=== PATIENT | male | born 1955 | race Caucasian/White ===

== ENCOUNTER 2016-03-15 14:16 | Inpatient (IN) | payer MEDICARE, MEDICAID ==
[~2016-03-15] VITALS: Ht 170.2 cm; Wt 90.8 kg
[~2016-03-15 14:16] MED LIST: ASPI325T PO; BACL10TA PO; CEFU1TAB43 PO; DEXT15TA PO; DILA100C PO; FLUO-1 PO; GENT EACH EYE; LEVE500 PO; TAMS0.4C67 PO; TRAN200T PO
[2016-03-15 14:28] VITALS: BP 109/68; PULSE 58; RESP 18; TEMP 97.8; O2SAT 99
[2016-03-15] MEDS ORDERED: DILA30CA PO (14:33)
[2016-03-15] MEDS ORDERED: LABE100T2 PO (14:33)
[2016-03-15] MEDS ORDERED: TAMS5CAP PO ×2 (14:33→19:19)
[2016-03-15] MEDS ORDERED: BACL10TA PO ×2 (14:33→19:17)
[2016-03-15] MEDS ORDERED: KETOROLAC TROMETHAMINE 30 MG/ML (IVP) VIAL IV PUSH ONE ×2 (15:15→18:00)
[2016-03-15] MEDS ORDERED: LORazepam 2 MG/ML VIAL IV PUSH ONE (15:15)
--- NOTE | 2016-03-15 15:44 | PD ---
HPI Chief Complaint: Anxiety Time Seen by Provider: 15:38 Travel History International Travel<30 days: No Contact w/Intl Traveler<30days: No Traveled to known affect area: No History of Present Illness HPI 60-year-old male that presents to the ED for evaluation of left lower leg pain as well as buttocks pain and anxiety. Per patient is a chronic history depression and anxiety. Patient for lice on the left side. Per patient he feels like he has muscle spasms on his left leg because severe pain. Per patient he currently takes ibuprofen and Tylenol for pain and he states that he does have stronger pain medications but he doesn't know his gives to him. Per patient for the past week to 5 days he's been having some buttocks pain as well as some pain on the left leg and the right hip to come and go. Per patient the most severe as on the body aches. He does tell me that his been more sedentary than usual and he does have a colostomy back so he has no bowel movement issues but he does tell me he has a history of abscesses in the perirectal region. He actually had to have surgery on one of them. He denies any discharge or any mass or deformity in the area but he cannot really tender when his last and his checked his buttox. He denies any chest pain or shortness of breath. Per patient's his anxiety has been worsening for the past 3 weeks. Per patient he only takes Prozac for depression but he states that he' s been sitting on a recliner and per patient is driving him "crazy ". Per patient has no suicidal or homicidal ideation but he feels very anxious and feels like he needs something for it. Per patient his pain is currently 7 out of 10. PFSH Past Medical History Hx Anticoagulant Therapy: Yes Arthritis: Yes Asthma: No Autoimmune Disease: No Blood Disorders: No Anxiety: Yes Depression: Yes Heart Rhythm Problems: No Cancer: No Cardiovascular Problems: Yes High Cholesterol: No Chemotherapy: No Chest Pain: No Congestive Heart Failure: No COPD: No Cerebrovascular Accident: Yes Diabetes: No Diminished Hearing: No Endocrine: No Gastrointestinal Disorders: Yes (ULCERATIVE COLITIS) GERD: No Genitourinary: Yes (HX OF URINARY RETENTION REQUIRING INTERMITTANT CATH, NOT CURRENT ) Headaches: No Hepatitis: No Hiatal Hernia: No Hypertension: Yes Immune Disorder: No Implanted Vascular Access Dvce: Yes Kidney Stones: No Musculoskeletal: Yes (HX OF L HIP FRACTURE 07/2013, JOLLY PARESIS L SIDE, USES LEG BRACE L , WALKER) Neurologic: Yes (FEBRUARY 2012 HEMORRHAGIC STROKE) Psychiatric: Yes (SLIGHTLY CLAUSTROPHOBIC) Reproductive: No Respiratory: Yes (HX OF TRACHEOTOMY AFTER STROKE, DIFFICULTY EXTUBATING) Migraines: No Radiation Therapy: No Renal Failure: No Seizures: No Sickle Cell Disease: No Sleep Apnea: No Thyroid Disease: No Ulcer: No Past Surgical History Abdominal Surgery: Yes (ILLEOSTOMY 11/2012) AICD: No Arteriovenous Shunt: No Body Medical Devices: ISELA AND PINS IN LEFT LEG/HIP Cardiac Surgery: No Ear Surgery: Yes (SINUS SURGERY) Endocrine Surgery: No Eye Surgery: No Genitourinary Surgery: No Gynecologic Surgery: No Insulin Pump: No Joint Replacement: No Neurologic Surgery: Yes (CRANIOTOMY 2012) Oral Surgery: Yes Pacemaker: No Thoracic Surgery: Yes (ILEOSTOMY, POST RONY RECTAL ABCESS REMOVAL 2012, 2013) Tonsillectomy: Yes Other Surgery: Yes (relief of blood clot in brain(feb 2012)) Social History Alcohol Use: Yes (Saturday he drank alcohol with friends) Tobacco Use: No Substance Use: Yes (thc) Allergies-Medications (Allergen,Severity, Reaction): Coded Allergies: No Known Allergies (Unverified , 03/15/16) Reported Meds & Prescriptions Reported Meds & Active Scripts Active Reported Labetalol (Labetalol HCl) 100 Mg Tab 100 Mg PO BID Dilantin (Phenytoin Extended) 30 Mg Cap 30 Mg PO TID Baclofen 10 Mg Tab 10 Mg PO TID PRN Flomax (Tamsulosin HCl) 0.4 Mg Cap 0.4 Mg PO HS Review of Systems Except as stated in HPI: all other systems reviewed are Neg Physical Exam Narrative GENERAL: SKIN: Warm and dry. Examination of the sacrum did reveal what appears to be irritation of the skin with possible stage I decubitus ulcer but also what appears to be a perirectal abscess already draining greenish liquid. Pain is reproducible with touch in this area. Patient does have an area of swelling and erythema noted on the right scrotum appears to be somewhat indurated. No obvious fluid noted. HEAD: Atraumatic. Normocephalic. EYES: Pupils equal and round. No scleral icterus. No injection or drainage. ENT: No nasal bleeding or discharge. Mucous membranes pink and moist. Tongue is midline. No uvula deviation. NECK: Trachea midline. No JVD. CARDIOVASCULAR: Regular rate and rhythm. No murmurs, S3, S4. RESPIRATORY: No accessory muscle use. Clear to auscultation. Breath sounds equal bilaterally. GASTROINTESTINAL: Abdomen soft, non-tender, nondistended, patient has colostomy bag on the right lower quadrant. Hepatic and splenic margins not palpable. MUSCULOSKELETAL: Extremities without clubbing, cyanosis, or edema. No obvious deformities. Patient has no movements of the left upper and left lower extremity secondary to chronic paralysis. Patient appears to have full passive movement on the right hip but has some pain on the hip itself. No knee pain or ankle pain noted. 2+ pulses bilaterally. Some pain on the medial aspect of the back but minimal. Full range of motion of right upper extremity with no pain. NEUROLOGICAL: Awake and alert. No obvious cranial nerve deficits. Motor grossly within normal limits. Five out of 5 muscle strength in the arms and legs. Normal speech. PSYCHIATRIC: Appropriate mood and affect; insight and judgment normal. Data Data Last Documented VS Vital Signs Date Time Temp Pulse Resp B/P Pulse Ox O2 Delivery O2 Flow Rate FiO2 03/15/16 14:28 97.8 58 18 109/68 99 Orders Electrocardiogram (03/15/16 15:13) Complete Blood Count With Diff (03/15/16 15:13) Basic Metabolic Panel (Bmp) (03/15/16 15:13) Prothrombin Time / Inr (Pt) (03/15/16 15:13) Act Partial Throm Time (Ptt) (03/15/16 15:13) Blood Culture (03/15/16 15:13) Urinalysis - C+S If Indicated (03/15/16 15:13) Magnesium (Mg) (03/15/16 15:13) Wound Culture And Gram Stain (03/15/16 15:13) Ct Abd/Pel W Iv Contrast(Rout) (03/15/16 15:13) Iv Access Insert/Monitor (03/15/16 15:13) Lorazepam Inj (Ativan Inj) (03/15/16 15:15) Ketorolac Inj (Toradol Inj) (03/15/16 15:15) Lactic Acid (03/15/16 15:44) Us Leg Venous Doppler (03/15/16 ) Iohexol 350 Inj (Omnipaque 350 Inj) (03/15/16 17:09) Piperacil-Tazo 3.375 Gm Premix (Zosyn 3. (03/15/16 18:00) Vancomycin Inj (Vancomycin Inj) (03/15/16 18:00) Ketorolac Inj (Toradol Inj) (03/15/16 18:00) Admit Order (Ed Use Only) (03/15/16 18:08) Consult Urology (03/15/16 ) Labs Laboratory Tests Test 03/15/16 03/15/16 03/15/16 15:23 16:00 16:45 White Blood Count 17.0 TH/MM3 Red Blood Count 4.36 MIL/MM3 Hemoglobin 13.0 GM/DL Hematocrit 37.1 % Mean Corpuscular Volume 85.1 FL Mean Corpuscular Hemoglobin 29.7 PG Mean Corpuscular Hemoglobin 34.9 % Concent Red Cell Distribution Width 15.6 % Platelet Count 598 TH/MM3 Mean Platelet Volume 6.7 FL Neutrophils (%) (Auto) 83.0 % Lymphocytes (%) (Auto) 4.0 % Monocytes (%) (Auto) 7.9 % Eosinophils (%) (Auto) 3.7 % Basophils (%) (Auto) 1.4 % Neutrophils # (Auto) 14.1 TH/MM3 Lymphocytes # (Auto) 0.7 TH/MM3 Monocytes # (Auto) 1.3 TH/MM3 Eosinophils # (Auto) 0.6 TH/MM3 Basophils # (Auto) 0.2 TH/MM3 CBC Comment DIFF FINAL Differential Comment Prothrombin Time 11.8 SEC Prothromb Time International 1.1 RATIO Ratio Activated Partial 30.9 SEC Thromboplast Time Sodium Level 135 MEQ/L Potassium Level 4.1 MEQ/L Chloride Level 104 MEQ/L Carbon Dioxide Level 23.4 MEQ/L Anion Gap 8 MEQ/L Blood Urea Nitrogen 5 MG/DL Creatinine 0.99 MG/DL Estimat Glomerular Filtration 78 ML/MIN Rate Random Glucose 95 MG/DL Calcium Level 9.1 MG/DL Magnesium Level 2.3 MG/DL Lactic Acid Level 1.0 mmol/L Urine Color YELLOW Urine Turbidity CLEAR Urine pH 5.5 Urine Specific [place] 1.006 Urine Protein NEG mg/dL Urine Glucose (UA) NEG mg/dL Urine Ketones NEG mg/dL Urine Occult Blood NEG Urine Nitrite NEG Urine Bilirubin NEG Urine Urobilinogen LESS THAN 2.0 MG/DL Urine Leukocyte Esterase NEG Urine RBC LESS THAN 1 /hpf Urine WBC 1 /hpf Microscopic Urinalysis Comment CULT NOT INDICATED MDM Medical Decision Making Medical Screen Exam Complete: Yes Emergency Medical Condition: Yes Medical Record Reviewed: Yes Interpretation(s) EKG shows sinus rhythm with no sign of acute ischemia or arrhythmia read by me and attending. Differential Diagnosis Abscess versus perirectal abscess versus DVT versus sepsis versus acute on chronic pain versus anxiety versus depression versus decubitus ulcer Narrative Course 60-year-old male that presents to the ED for evaluation of multiple complaints. Patient was properly examined and was found to have what appears to be a draining around the perirectal abscess. Does not appear to involve the anus itself. I recommend imaging to rule out any sign of deeper injury or infection as patient does appear to have changes on the skin that could be operations support representative of an early decubitus ulcer as patient has been more sedentary recently. Patient also complains of severe anxiety. At this time I do recommend labs and imaging for further evaluation. Patient was started on IV fluids as well as IV anxiolytics. Patient was given Tylenol for pain. Culture of the purulence was taken. I do not see any need for incision and drainage at this time as is already draining greenish fluid. Patient agrees first to proceed with plan. Labs and imaging showed what appears to be a scrotal abscess with elevated white blood cell count. My attending evaluated the patient with me and agrees with plan. He recommends admission. There is no sign of rectal abscess. Patient was started on vancomycin and Zosyn. He agrees for admission plan. Case was discussed with Dr. iknney in school agrees to see patient in consultation well patient is admitted. Case was discussed with Dr. Lewis agrees to admission. Diagnosis Primary Impression: Scrotal abscess Additional Impressions: Cellulitis Qualified Code: L03.818 - Cellulitis of other specified site Leukocytosis Qualified Code: D72.829 - Leukocytosis, unspecified type Anxiety Admitting Information Admitting Physician Requests: Admit Ki Butt Mar 15, 2016 15:44
[2016-03-15 15:58] LABS: AUTOMATED NEUTROPHIL # 14.1 TH/MM3 (1.8-7.7); BASOPHIL # 0.2 TH/MM3 (0-0.2); BASOPHIL % 1.4 % (0.0-2.0); EOSINOPHIL # 0.6 TH/MM3 (0-0.4); EOSINOPHIL % 3.7 % (0.0-4.0); HEMATOCRIT 37.1 % (39.0-51.0); HEMO FLAGS DIFF FINAL; LYMPHOCYTE # 0.7 TH/MM3 (1.0-4.8); MEAN CELL VOLUME 85.1 FL (80.0-100.0); MEAN CORPUSCULAR HEMOGLOBIN 29.7 PG (27.0-34.0); MEAN CORPUSCULAR HGB CONC 34.9 % (32.0-36.0); MONO % 7.9 % (0.0-8.0); PLATELET COUNT 598 TH/MM3 (150-450); RED BLOOD COUNT 4.36 MIL/MM3 (4.50-5.90); RED CELL DISTRIBUTION WIDTH 15.6 % (11.6-17.2)
[2016-03-15 16:08] LABS: APTT (PATIENT) 30.9 SEC (24.3-30.1); INTERNATIONAL NORMALIZED RATIO 1.1 RATIO; PROTHROMBIN TIME - PATIENT 11.8 SEC (9.8-11.6)
[2016-03-15 16:25] LABS: BICARBONATE 23.4 MEQ/L (21.0-32.0); MAGNESIUM 2.3 MG/DL (1.5-2.5); POTASSIUM 4.1 MEQ/L (3.5-5.1)
[2016-03-15 17:03] LABS: BLOOD, URINE NEG (NEG); GLUCOSE,URINE NEG (NEG); KETONE, URINE NEG (NEG); NITRITE,URINE NEG (NEG); PH, URINE 5.5 (5.0-8.5); URINE COLOR YELLOW (YELLW/STRAW)
[2016-03-15 17:07] LABS: COMMENT (UR) CULT NOT INDICATED; CULTURE IF INDICATED CULT NOT INDICATED
[2016-03-15] MEDS ORDERED: IOHEXOL 350 MG/ML 10 ML VIAL (for RAD DIAG) IV ONE (17:09)
--- NOTE | 2016-03-15 17:32 | RADRPT ---
EXAM DATE/TIME: 03/15/2016 16:58 [facility] COMPARISON: CT ABDOMEN & PELVIS W CONTRAST, December 10, 2012, 16:46. INDICATIONS : Evaluate for abscess,Left groan pain IV CONTRAST: 100 cc Omnipaque 350 (iohexol) IV ORAL CONTRAST: No oral contrast ingested. RADIATION DOSE: 12.68 CTDIvol (mGy) MEDICAL HISTORY : Hypertension. colitis,IBS SURGICAL HISTORY : Ilieostomy,hip fracture ENCOUNTER: Initial ACUITY: 2 weeks PAIN SCALE: 8/10 LOCATION: Left pelvis TECHNIQUE: Volumetric scanning of the abdomen and pelvis was performed. Using automated exposure control and ad justment of the mA and/or kV according to patient size, radiation dose was kept as low as reasonably achievable to obtain optimal diagnostic quality images. FINDINGS: LOWER LUNGS: There is airspace consolidation and a small right-sided pleural effusion. The left lung base is clear . LIVER: Homogeneous density without lesion. There is no dilation of the biliary tree. No calcified gallston es. SPLEEN: Normal size without lesion. PANCREAS: Within normal limits. KIDNEYS: Left renal cyst. No evidence of hydronephrosis. ADRENAL GLANDS: Within normal limits. VASCULAR: There is no aortic aneurysm. BOWEL/MESENTERY: The stomach, small bowel, and colon demonstrate no acute abnormality. There is no free intraperitone al air or fluid. ABDOMINAL WALL: Right-sided ileostomy. RETROPERITONEUM: There is no lymphadenopathy. BLADDER: No wall thickening or mass. REPRODUCTIVE: There is a abnormal rim-enhancing fluid collection identified within the midline scrotum and extendin g into the right penile shaft. The scrotal fluid collection measures 4.9 cm anterior posterior by 2.3 cm transversely. INGUINAL: There is no lymphadenopathy or hernia. MUSCULOSKELETAL: Within normal limits for patient age. CONCLUSION: Abnormal fluid collection identified within the midline scrotum concerning for abscess which is exten ding into the right penile shaft. Yenny Abraham MD on March 15, 2016 at 17:27 Board Certified Radiologist. This report was verified electronically.
--- NOTE | 2016-03-15 17:47 | RADRPT ---
EXAM DATE/TIME: 03/15/2016 17:27 [facility] COMPARISON: US LEG LEFT VENOUS DOPPLER, August 11, 2013, 16:19. INDICATIONS : Left leg pain. MEDICAL HISTORY : Hypertension. Ulcerative colitis. Hemorrhagic stroke. CVA. Hemiplegia. Anticoauglant therapy. SURGICAL HISTORY : Tonsillectomy. Craniotomy. Sinus surgery. Tracheotomy. Ileostomy. Perirectal abscess removal. Left hip surgery. Blood transfusions. Brain surgery for blood clot relief. ENCOUNTER: Subsequent ACUITY: 3 weeks PAIN SCORE: 8/10 LOCATION: Left leg. TECHNIQUE: Venous ultrasound of the leg was performed from the inguinal ligament to the proximal calf. Real-michael e, color Doppler and spectral tracing, compression and augmentation techniques were used. FINDINGS: There is normal compressibility of the deep venous system from the inguinal region to the proximal ca lf. No echogenic clot is seen in the lumen of the common femoral, femoral, popliteal, and posterior tibial veins. There is a normal response of the venous system to proximal and distal augmentation an d respiration. CONCLUSION: Normal examination. Yenny Abraham MD on March 15, 2016 at 17:45 Board Certified Radiologist. This report was verified electronically.
[2016-03-15] MEDS ORDERED: VANCOMYCIN INJ 1,000 MG in SODIUM CHLOR 0.9% 250 ML INJ 250 ML IV ONE (18:00)
[2016-03-15] MEDS ORDERED: PIPERACIL-TAZO 3.375 GM PREMIX 50 ML IV ONE (18:00)
[2016-03-15] MEDS ORDERED: ENOXAPARIN SODIUM 40 MG/0.4 ML SYRINGE SQ SCH (18:45)
--- NOTE | 2016-03-15 19:11 | HHI.PR ---
Objective Objective Results - Vital Signs Date Time Temp Pulse Resp B/P Pulse Ox O2 Delivery O2 Flow Rate FiO2 03/15/16 14:28 97.8 58 18 109/68 99 Result Diagram: 03/15/16 1523 03/15/16 1523 Other Results Laboratory Tests Test 03/15/16 03/15/16 03/15/16 15:23 16:00 16:45 White Blood Count 17.0 Red Blood Count 4.36 Hemoglobin 13.0 Hematocrit 37.1 Mean Corpuscular Volume 85.1 Mean Corpuscular Hemoglobin 29.7 Mean Corpuscular Hemoglobin 34.9 Concent Red Cell Distribution Width 15.6 Platelet Count 598 Mean Platelet Volume 6.7 Neutrophils (%) (Auto) 83.0 Lymphocytes (%) (Auto) 4.0 Monocytes (%) (Auto) 7.9 Eosinophils (%) (Auto) 3.7 Basophils (%) (Auto) 1.4 Neutrophils # (Auto) 14.1 Lymphocytes # (Auto) 0.7 Monocytes # (Auto) 1.3 Eosinophils # (Auto) 0.6 Basophils # (Auto) 0.2 CBC Comment DIFF FINAL Differential Comment Prothrombin Time 11.8 Prothromb Time International 1.1 Ratio Activated Partial 30.9 Thromboplast Time Sodium Level 135 Potassium Level 4.1 Chloride Level 104 Carbon Dioxide Level 23.4 Anion Gap 8 Blood Urea Nitrogen 5 Creatinine 0.99 Estimat Glomerular Filtration 78 Rate Random Glucose 95 Calcium Level 9.1 Magnesium Level 2.3 Lactic Acid Level 1.0 Urine Color YELLOW Urine Turbidity CLEAR Urine pH 5.5 Urine Specific [place] 1.006 Urine Protein NEG Urine Glucose (UA) NEG Urine Ketones NEG Urine Occult Blood NEG Urine Nitrite NEG Urine Bilirubin NEG Urine Urobilinogen LESS THAN 2.0 Urine Leukocyte Esterase NEG Urine RBC LESS THAN 1 Urine WBC 1 Microscopic Urinalysis Comment CULT NOT INDICATED Date/Time Procedure Status Source Growth 03/15/16 15:35 Aerobic Blood Culture Received Blood Peripheral Pending 03/15/16 15:35 Anaerobic Blood Culture Received Blood Peripheral Pending 03/15/16 15:20 Gram Stain - Final Resulted Wound Buttock 03/15/16 15:20 Wound Culture Resulted Wound Buttock Pending Physical Exam Physical Exam PT IS SEEN & EXAMINED D/W PT D/W PHILIPP SEE ORDERS SEE H&P WILL F/U Yazmin Cooper MD Mar 15, 2016 19:10
[2016-03-15] MEDS ORDERED: ASPI325T PO (19:17)
[2016-03-15] MEDS ORDERED: ADDE15TA PO (19:17)
[2016-03-15] MEDS ORDERED: FLUO-1 PO (19:19)
[2016-03-15] MEDS ORDERED: LEVE500 PO (19:19)
[2016-03-15] MEDS: TAMSULOSIN HCL 0.4 MG CAP PO SCH (19:25)
[2016-03-15] MEDS: FAMOTIDINE 20 MG TAB PO SCH (19:25)
[2016-03-15] MEDS: DEXT 5%-NACL 0.45% 1000 ML INJ 1,000 ML IV SCH (19:39)
[2016-03-15 19:40] VITALS: BP 113/66; PULSE 60; RESP 17; O2SAT 96
[2016-03-15] MEDS ORDERED: LABETALOL HCL 100 MG TAB PO SCH (21:00)
[2016-03-15] MEDS: BACLOFEN 10 MG TAB PO PRN (21:34)
--- NOTE | 2016-03-15 22:35 | MH ---
cc: YAZMIN COOPER MD DATE OF ADMISSION: 03/15/2016 DATE OF 1955 CHIEF COMPLAINT Left lower leg pain. Buttocks pain. Scrotal pain. HISTORY OF PRESENT ILLNESS This is a pleasant, 60-year-old white male who has presented to the ER for left lower extremity pain as well as pain in his buttocks. He is complaining of muscle spasms which become fairly severe in his left leg. The patient states for the past five days he has been having some buttocks pain and some scrotal pain with body aches. The patient has a fairly sedentary lifestyle secondary to a CVA. He has a significant history of ulcerative colitis and currently has a ileostomy due to a number of perirectal abscesses he has had in the past. The patient feels like this may be the same type of pain. He denies any chest pain. No shortness of breath. The patient denies any nausea or vomiting. He denies any headaches. He denies any fever. The patient does have a ileostomy which does have stool in the bag that appears to be working properly. The patient does have periods of anxiety and has been more anxious in the past week or so. He does have acute on chronic pain and currently rates his pain as 7 out of 10. The patient is positive for left-sided weakness. He cannot overcome resistance in his left lower leg and his left arm is flaccid. PAST MEDICAL HISTORY 1. Arthritis. 2. Asthma. 3. Anticoagulant therapy. 4. Ulcerative colitis. 5. Anxiety depression. 6. Cardiovascular problems. 7. History of urinary retention requiring intermittent cath. 8. Hypertension. 9. History of hip fracture July 2013. 10. Slightly claustrophobic. PAST SURGICAL HISTORY 1. Status post tracheotomy after stroke, not present now. 2. Intermittent urinary catheterizations. 3. Ileostomy. 4. Left leg surgery with rods and pins. 5. Sinus surgery. 6. Craniotomy. 7. Ileostomy. ALLERGIES None known. MEDICATIONS REPORTED 1. Labetalol p.o. 2. Dilantin. Dose 30 mg p.o. t.i.d. 3. Baclofen. 4. Flomax. SOCIAL HISTORY The patient denies any tobacco use. Does have social alcohol use. He does take part in marijuana smoking. He is , lives at home with his . FAMILY HISTORY Heart disease, diabetes, cancer, hypertension. REVIEW OF SYSTEMS A 10-point review was done. Positive findings are scrotal edema and probable abscess, pain in his extremities and his rectal/scrotal area. Positive for anxiety. All other systems are negative. PHYSICAL EXAMINATION GENERAL: This is a well-nourished 60-year-old white male, looks to be older than his stated age, resting in the bed. He is alert, oriented and a good historian. HEENT: Atraumatic, normocephalic. Pupils are 2 mm bilateral. PERRLA. No scleral icterus, no drainage. Mucous membranes are pink and slightly dry. Tongue is midline. NECK: Trachea is midline. No JVD. Neck is supple. CARDIOVASCULAR: Regular rate and rhythm. No murmurs, rubs, or gallops appreciated. He does have a trace of edema in his left lower leg. Right lower leg is normal. Pulses are intact. RESPIRATORY: Clear to auscultation anteriorly. Posteriorly he is clear on the left. He has decreased breath sounds on the right. GI: Abdomen is round, soft, non-tender, non-distended. Active bowel sounds in all four quadrants. The patient does have a functioning ileostomy in place with a bag. He has noted loose bowel movement in the bag, brown stool. MUSCULOSKELETAL: No clubbing, no cyanosis. Edema noted in the left lower leg as stated. He does have contractures in the left hand. The patient can raise his left leg for a brief period of time but cannot overcome resistance. Left arm has minimal movement in the shoulder but no detailed finger movement out of the left hand. NEUROLOGIC: He is alert, oriented x 4. He is a good historian. He is awake. Slight anxiety noted over chronic hospital condition. PSYCHOLOGIC: Appropriate mood. Judgment is normal. VITAL SIGNS: Temp 97.8, pulse 58, respiratory rate 18, blood pressure 109/68. O2 sat 99. LABORATORY DATA WBC count 17, RBC 4.36, hemoglobin 13, hematocrit 37.1, platelet count 598; neutrophil count 83% aut count, lymphocytes 4. PT/INR is 1.1. Urine yellow, clear; pH is 5.5, specific gravity 1.006. Negative for protein, glucose, ketones, occult blood, nitrites and bilirubin. Culture is not indicated at this time. Chemistry shows sodium of 135, potassium 4.1, chloride 104, anion gap 8, BUN 5, creatinine 0.99, calcium is 9.1, magnesium is 2.3. IMAGING STUDIES CT abdomen and pelvis - Abnormal fluid collection identified within the midline scrotum concerning for abscess which extends into the right penile shaft. Lower extremity ultrasound - Normal exam. ASSESSMENT 1. Scrotal abscess. 2. Cellulitis. 3. Leukocytosis. 4. Hyponatremia. 5. History of cerebrovascular accident. 6. Anxiety disorder. 7. History of ulcerative colitis. 8. Hypertension. PLAN 1. Admit for observation. 2. Reconcile his medications. 3. He will be on IV piperacillin. 4. He got IV vancomycin in the ER. 5. We will consult Infectious Disease for their expert opinion. 6. DVT prophylaxis with Lovenox. 7. Monitor his labs as warranted which will include lab work in the morning. 8. In the morning we will do an ultrasound of his testes with Doppler as well as CBC. 9. Pepcid for peptic ulcer disease prophylaxis. 10. Pain management. 11. Wound culture, blood cultures. After all testing is reviewed, we will move forward with any further consults, if his abscess needs to be drained. 12. The patient is full code, full aggressive care. 13. We will support. Dictated by: ERMIAS Saunders Yazmin Cooper MD MNA/SSB /7:08 PM /9:03 AM PT IS SEEN & EXAMINED D/W PT D/W PHILIPP SEE ORDERS SEE H&P WILL F/U Yazmin Cooper MD Mar 15, 2016 19:10 MTDD
[2016-03-15 23:12] VITALS: BP 135/71; PULSE 64; RESP 16; TEMP 96.8; O2SAT 99
[2016-03-16] VITALS (7 sets, daily range): BP systolic 95–105; BP diastolic 50–61; PULSE 59–75; RESP 16–20; TEMP 97–101.8; O2SAT 93–97
[2016-03-16] MEDS: PIPERACIL-TAZO 4.5 GM PREMIX 100 ML IV SCH ×5 (00:56→22:52)
[2016-03-16] MEDS: KETOROLAC TROMETHAMINE 10 MG TAB PO PRN ×2 (01:02→21:33)
[2016-03-16] MEDS: HYDROmorphone HCL PF 1 MG/ML VIAL IV PUSH PRN ×3 (01:47→15:50)
[2016-03-16] MEDS: DEXT 5%-NACL 0.45% 1000 ML INJ 1,000 ML IV SCH ×2 (05:18→15:58)
[2016-03-16 07:26] LABS: HEMATOCRIT 36.1 % (39.0-51.0); MEAN CELL VOLUME 84.3 FL (80.0-100.0); MEAN CORPUSCULAR HEMOGLOBIN 28.2 PG (27.0-34.0); MEAN CORPUSCULAR HGB CONC 33.4 % (32.0-36.0); PLATELET COUNT 561 TH/MM3 (150-450); RED BLOOD COUNT 4.28 MIL/MM3 (4.50-5.90); RED CELL DISTRIBUTION WIDTH 15.4 % (11.6-17.2); REVIEW FLAG FINAL; WHITE BLOOD COUNT 17.9 TH/MM3 (4.0-11.0)
[2016-03-16 07:43] LABS: BICARBONATE 25.9 MEQ/L (21.0-32.0); POTASSIUM 3.4 MEQ/L (3.5-5.1)
[2016-03-16] MEDS: PHENYTOIN SODIUM 30 MG CAP PO SCH ×3 (09:00→18:44)
[2016-03-16] MEDS: FAMOTIDINE 20 MG TAB PO SCH ×2 (09:00→21:28)
[2016-03-16] MEDS ORDERED: PILL SPLITTER OTHER PRN (09:15)
--- NOTE | 2016-03-16 10:27 | RADRPT ---
EXAM DATE/TIME: 03/16/2016 09:27 [facility] COMPARISON: No previous studies available for comparison. INDICATIONS : Scrotal pain and swelling. MEDICAL HISTORY : Hypertension. Seizures. Hemorrhagic stroke. Cerebrovascular accident. Ulcerative colitis. Urinary ret ention. Depression. Anxiety. Arthritis. SURGICAL HISTORY : Tonsillectomy. Sinus surgery. Craniotomy. Tracheotomy. Ileostomy. Left hip ORIF. ENCOUNTER: Initial ACUITY: 3 months PAIN SCORE: 5/10 LOCATION: Bilateral testicles. MEASUREMENTS: RIGHT TESTICLE: 3.0 x 1.7 x 3.7cm LEFT TESTICLE: 3.2 x 1.7 x 4.0cm FINDINGS: Of bilateral testicles are normal size and configuration with normal vascularity. Epididymides are no rmal size with a 5 mm cyst in the left epididymal head. There are small varices bilaterally in the sc rotum. CONCLUSION: Bilateral small scrotal varices . 5 mm cyst left epididymis. Testicles themselves are normal with n ormal vascularity Tho Che MD on March 16, 2016 at 10:24 Board Certified Radiologist. This report was verified electronically.
[2016-03-16] MEDS: ACETAMINOPHEN 325 MG TAB PO PRN (10:57)
--- NOTE | 2016-03-16 11:04 | HHI.PR ---
Subjective Remarks No chest pain No shortness of breath No headache No nausea vomiting Pain in scrotal and buttocks area Appetite good Low-grade fever (Adriana Chapman) Objective Objective Results - Vital Signs Date Time Temp Pulse Resp B/P Pulse Ox O2 Delivery O2 Flow Rate FiO2 03/16/16 08:00 100.3 62 16 104/61 95 03/16/16 04:00 98.6 59 16 100/54 95 03/16/16 00:31 98.2 63 16 105/58 94 03/15/16 23:12 96.8 64 16 135/71 99 03/15/16 19:40 60 17 113/66 96 Room Air 03/15/16 14:28 97.8 58 18 109/68 99 I/O 03/15/16 03/15/16 03/15/16 03/16/16 03/16/16 03/16/16 07:00 15:00 23:00 07:00 15:00 23:00 Intake Total 350 ml Output Total 200 ml Balance -200 ml 350 ml Intake Oral 350 ml Output Stool Total 200 ml # Voids 1 # Bowel Movements 1 (Adriana Chapman) Result Diagram: 03/16/16 0624 03/16/16 0624 Other Results Last Impressions Scrotum Ultrasound 03/16/16 0600 Signed Impressions: Service Date/Time: Wednesday, March 16, 2016 09:27 - CONCLUSION: Bilateral small scrotal varices . 5 mm cyst left epididymis. Testicles themselves are normal with normal vascularity Tho Che MD Abdomen/Pelvis CT 03/15/16 1513 Signed Impressions: Service Date/Time: February 16:58 - CONCLUSION: Abnormal fluid collection identified within the midline scrotum concerning for abscess which is extending into the right penile shaft. Yenny Abraham MD Lower Extremity Ultrasound 03/15/16 0000 Signed Impressions: Service Date/Time: February 17:27 - CONCLUSION: Normal examination. Yenny Abraham MD Medications and IVs Active Medications Acetaminophen (Tylenol) 650 mg Q6H PRN PO Last administered on 03/16/16t 10:57 ; Admin Dose 650 MG; Start 03/16/16 at 10:00 Baclofen (Lioresal) 10 mg TID PRN PO Last administered on 03/15/16 21:34; Admin Dose 10 MG; Start 03/15/16 at 18:45 Dextrose/Sodium Chloride (D5W-1/2 NS 1000 ml Inj) 1,000 ml @ 125 mls/hr Q8H IV Last administered on 03/16/16 05:18; Admin Dose 125 MLS/HR; Start 03/15/16 at 18:45 Enoxaparin Sodium (Lovenox Inj) 40 mg Q24H SQ; Start 03/15/16 at 18:45; Stop at 18:45; Status DC Enoxaparin Sodium (Lovenox Inj) 40 mg Q24H SQ; Start 03/16/16 at 16:00 Famotidine (Pepcid) 20 mg BID PO; Start 03/15/16 at 21:00 Hydromorphone HCl (Dilaudid Pf Inj) 1 mg Q4H PRN IV PUSH Last administered on 06:04; Admin Dose 1 MG; Start 03/16/16 at 01:00 Iohexol 100 ml 100 ml STK-MED ONCE IV Last administered on 03/15/16 17:09; Admin Dose 100 ML; Start 03/15/16 at 17:09; Stop 03/15/16 at 17:10; Status DC Ketorolac Tromethamine (Toradol Inj) 30 mg ONCE ONCE IV PUSH Last administered on 03/15/16 15:34; Admin Dose 30 MG; Start 03/15/16 at 15:15; Stop 03/15/16 at 15:16; Status DC Ketorolac Tromethamine (Toradol Inj) 30 mg ONCE ONCE IV PUSH Last administered on 03/15/16 18:31; Admin Dose 30 MG; Start 03/15/16 at 18:00; Stop 03/15/16 at 18:01; Status DC Ketorolac Tromethamine (Toradol) 10 mg Q6H PRN PO Last administered on 01:02; Admin Dose 10 MG; Start 03/16/16 at 01:00; Stop 03/21/16 at 00:59 Labetalol HCl (Trandate) 50 mg BID PO; Start 03/16/16 at 21:00 Labetalol HCl (Trandate) 100 mg BID PO; Start 03/15/16 at 21:00; Stop 03/16/16 at 09:10; Status DC Lorazepam (Ativan Inj) 1 mg ONCE ONCE IV PUSH Last administered on 03/15/16 15 :33; Admin Dose 1 MG; Start 03/15/16 at 15:15; Stop 03/15/16 at 15:16; Status DC Miscellaneous (Pill Splitter) 1 ea UNSCH PRN OTHER; Start 03/16/16 at 09:15 Phenytoin (Dilantin) 30 mg TID PO Last administered on 03/16/16 09:00; Admin Dose 30 MG; Start 03/16/16 at 09:00 Piperacillin Sod/ Tazobactam Sod 50 ml @ 100 mls/hr ONCE ONCE IV Last administered on 03/15/16 18:31; Admin Dose 100 MLS/HR; Start 03/15/16 at 18:00 ; Stop 03/15/16 at 18:29; Status DC Piperacillin Sod/ Tazobactam Sod 100 ml @ 200 mls/hr Q6H IV Last administered on 03/16/16 05:18; Admin Dose 200 MLS/HR; Start 03/16/16 at 00:00 Tamsulosin HCl 0.4 mg 0.4 mg HS PO; Start 03/15/16 at 21:00 Vancomycin HCl/ Sodium Chloride (Vancomycin Inj/ NS 250 ml Inj) 250 ml @ 250 mls/hr ONCE ONCE IV Last administered on 03/15/16 18:00; Admin Dose 250 MLS/HR ; Start 03/15/16 at 18:00; Stop 03/15/16 at 18:59; Status DC (Adriana Chapman) ROS General: Weakness, Other (10 point ROS done. Positives include pain from scrotal abscess, generalized weakness, left-sided weakness. All other systems unremarkable.) Neuro/MS: Other (left-sided weakness, chronic from old CVA. ) Skin: Other (scrotal abscess) (Adriana Chapman) Physical Exam Physical Exam PHYSICAL EXAMINATION GENERAL: This is a well-nourished 60-year-old white male, looks to be older than his stated age, resting in the bed. He is alert, oriented and a good historian. HEENT: Atraumatic, normocephalic. Pupils are 2 mm bilateral. PERRLA. No scleral icterus, no drainage. Mucous membranes are pink and slightly dry. Tongue is midline. NECK: Trachea is midline. No JVD. Neck is supple. CARDIOVASCULAR: Regular rate and rhythm. No murmurs, rubs, or gallops appreciated. He does have a trace of edema in his left lower leg. Right lower leg is normal. Pulses are intact. RESPIRATORY: Clear to auscultation anteriorly. Equal breath sounds today. GI: Abdomen is round, soft, non-tender, non-distended. Active bowel sounds in all four quadrants. The patient does have a functioning ostomy in place with a bag. He has noted loose bowel movement in the bag, brown stool. MUSCULOSKELETAL: No clubbing, no cyanosis. Edema noted in the left lower leg as stated. He does have contractures in the left hand. The patient can raise his left leg for a brief period of time but cannot overcome resistance. Left arm has minimal movement in the shoulder but no detailed finger movement out of the left hand. NEUROLOGIC: He is alert, oriented x 4. He is a good historian. He is awake. Slight anxiety noted over chronic hospital condition. PSYCHOLOGIC: Appropriate mood. Judgment is normal. Objective Remarks Im thinking Im having surgery today. Im doing ok. (Adriana Chapman) A/P Assessment and Plan ASSESSMENT 1. Scrotal abscess. 2. Cellulitis. 3. Leukocytosis 4. Hyponatremia. 5. History of cerebrovascular accident. 6. Anxiety disorder. 7. History of ulcerative colitis. 8. Hypertension. 9. Hypokalemia PLAN 1. Observation 2 medications reconciled. 3. IV piperacillin continue. 4. Low-grade temp today. Tylenol as needed 5. consult Infectious Disease for their expert opinion done. 6. DVT prophylaxis with Lovenox. 7. Monitor his labs as warranted which will include lab work in the morning. leutocytosis noted this a.m. at 17.9 8. He is nothing by mouth. Possible test/procedure at 1200. Patient doesnt know what is being done. 9. Pepcid for peptic ulcer disease prophylaxis. 10. Pain management. 11. Wound culture, blood cultures pending. 12. The patient is full code, full aggressive care. 13. K+, 3.4 1 PO dose 40 mEq potassium given. Will check BMP in a.m. Colostomy right abdomen draining without any issues. Discharge Planning Home with Discussed With: Nurse, Family (patient), Other (Dr. Cooper. 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
[2016-03-16] MEDS ORDERED: ONDANSETRON HCL 4 MG/2 ML VIAL IV PUSH ONE (11:07)
[2016-03-16] MEDS ORDERED: PROPOFOL 200 MG/20 ML AMP IV ONE (11:07)
[2016-03-16] MEDS ORDERED: POTASSIUM CL 40 MEQ/30 ML LIQ UDC PO ONE (12:00)
[2016-03-16] MEDS ORDERED: FAMOTIDINE 20 MG/2 ML VIAL ONE (12:43)
[2016-03-16] MEDS ORDERED: MIDAZOLAM HCL 2 MG/2 ML VIAL ONE (12:43)
--- NOTE | 2016-03-16 13:32 | PD.OP ---
Operative Report Preoperative Diagnosis: (1) Scrotal abscess (2) Ulcerative colitis Postoperative Diagnosis: Multiple Perirectal Abscesses Procedure: Exam under Anesthesia, Drainage of Perirectal abscess. Surgeon: Trevor Frost Internet Developer(s): N/A. Operation and Findings: No scrotal abscess. Multiple perirectal abscesses, cavities. Right sided drained copious amount of purulent material. Recommend Colorectal Consult See dictated report. Trevor Frost MD Mar 16, 2016 13:32
[2016-03-16] MEDS ORDERED: DO NOT ADM ANY ANTICOAGULANT DRUGS XX PRN (13:45)
[2016-03-16] MEDS ORDERED: ACETAMINOPHEN 1000 MG/100 ML VIAL IV ONE ×2 (13:47)
[2016-03-16] MEDS ORDERED: fentaNYL CITRATE 250 MCG/5 ML AMP ONE (13:50)
--- NOTE | 2016-03-16 14:53 | MB ---
cc: BIJU HERNANDEZ MD DATE OF CONSULTATION: 03/15/2016 REASON FOR CONSULTATION 1. Scrotal perineal abscess. 2. BPH with LUTS. HISTORY OF PRESENT ILLNESS The patient is a 60-year-old male with a history of CVA with left-sided hemiparesis presented to the ER earlier this evening with complaints of left lower extremity pain as well as pain in his buttocks and lower part of the scrotum for the past two weeks. The pain has worsened over the last five days particularly in the lower part of his scrotum. He has had perirectal abscesses in the past that have drained. He came to the ER. I evaluate him and he had a CT abdomen and pelvis without contrast which showed a 4 cm fluid collection in his perineum extending to the lower part of his scrotum consistent with a scrotal abscess. He also had a perirectal abscess that started to drain on its own. Urology was consulted for possible incision and drainage of the scrotal abscess. Currently he still continues to have pain but denies any fevers, chills, nausea, vomiting or flank pain. Denies any previous scrotal abscess in the past. Due to his stroke he does lead a fairly sedentary lifestyle. He also has an ileostomy due to recurrent bouts of ulcerative colitis in the past. He denies but he does have baseline moderate lower urinary tract symptoms including weak stream, frequency and urgency which requires taking Flomax 0.4 mg daily. Denies history of kidney stones or family history of prostate cancer. PAST MEDICAL HISTORY 1. Arthritis. 2. Asthma. 3. Ulcerative colitis. 4. Anxiety. 5. Hypertension. 6. History of hip fracture. 7. Claustrophobia. PAST SURGICAL HISTORY 1. Ileostomy. 2. Tracheotomy. 3. Craniotomy. 4. Sinus surgery. ALLERGIES No known drug allergies. MEDICATIONS Home medications include: 1. Labetalol. 2. Dilantin. 3. Baclofen. 4. Flomax 0.4 mg daily. SOCIAL HISTORY Denies tobacco use. Does smoke occasional marijuana. Socially drinks alcohol. He is and lives at home with his . FAMILY HISTORY Denies urolithiasis or history of prostate cancer. REVIEW OF SYSTEMS See HPI. A 12-point review of systems done was otherwise negative. PHYSICAL EXAMINATION VITAL SIGNS: Temperature 96.8, pulse 64, respiratory rate 16, blood pressure 135/71. Sat 99% on room air. GENERAL: He is alert and oriented x3. No apparent distress. He appears older than his stated age, currently resting in bed. HEENT: Normocephalic, atraumatic. Pupils equal round and reactive to light. No scleral icterus. Extraocular muscles intact. Mucous membranes are slightly dry. NECK: Trachea is midline. Neck is supple. CARDIOVASCULAR: Regular rate and rhythm. No murmurs, rubs or gallops. PULMONARY: Clear to auscultation bilaterally. No wheezes or rales. ABDOMEN: Soft, nontender, nondistended. He has a pink functioning ileostomy in placed in the right lower quadrant. EXTREMITIES: No clubbing, cyanosis or edema. GENITOURINARY: The patient is circumcised. Testes are descended bilaterally. His scrotum is soft. On the posterior aspect there is some induration and fluctuance extending down towards his rectum consistent with the abscess found on CT scan. RECTAL: Exam not indicated at this time. NEUROLOGIC: He is alert and oriented x4. Appropriate affect. SKIN: No ulcers or rashes, although he has a perirectal abscess currently draining. LABORATORY White count 17.9, hemoglobin 12.1, hematocrit 36.1, platelet count 561. Sodium 136, potassium 3.4, chloride 102, bicarb 25.9, BUN 5, creatinine 1.17. His urine was completely negative. IMAGING CT of the abdomen and pelvis with and without contrast reviewed. Agree with radiologist's report. He does have a 4 cm fluid collection in the posterior portion of his scrotum extending to his rectum consistent with the abscess. ASSESSMENT The patient is a 60-year-old male with a history of a stroke with left hemiplegia. Presents with worsening scrotal pain for the last five days, found to have a scrotal abscess extending towards his rectum. PLAN Discussed with the patient about doing a bedside incision and drainage; however, the patient preferred to be placed under general anesthetic. I discussed the risks, benefits, alternatives with him regarding an incision and drainage of the scrotal abscess under anesthetic including pain, bleeding, infection, risk of anesthesia, recurrence of the abscess, as well as the need for the wound to heal from the inside out requiring daily packing changes. He understood these risks. All questions were answered. An informed consent was obtained. Will recommend continuing antibiotics. Will obtain a scrotal ultrasound. Have him n.p.o. after midnight for the procedure tomorrow. MD ROSALINA Roth/KEVIN /10:42 AM /2:28 PM
[2016-03-16] MEDS: ENOXAPARIN SODIUM 40 MG/0.4 ML SYRINGE SQ SCH (15:49)
--- NOTE | 2016-03-16 16:39 | EKG ---
Date Performed: 03/15/2016 Time Performed: 15:40:40 PTAGE: 60 years EKG: SINUS BRADYCARDIA RIGHT BUNDLE BRANCH BLOCK MINIMAL VOLTAGE CRITERIA FOR LVH, CONSIDER NORM AL VARIANT ABNORMAL ECG PREVIOUS TRACING : 12/05/2015 23.15 DOCTOR: Rasta Burns Interpretating Date/Time 03/16/2016 16:37:41
[2016-03-16] MEDS: LABETALOL HCL 100 MG TAB PO SCH (21:00)
[2016-03-16] MEDS: TAMSULOSIN HCL 0.4 MG CAP PO SCH (21:28)
[2016-03-17] VITALS (10 sets, daily range): BP systolic 100–121; BP diastolic 50–65; PULSE 53–78; RESP 17–21; TEMP 96.7–100.7; O2SAT 91–96
[2016-03-17] MEDS: HYDROmorphone HCL PF 1 MG/ML VIAL IV PUSH PRN ×4 (00:09→21:09)
[2016-03-17] MEDS: PIPERACIL-TAZO 4.5 GM PREMIX 100 ML IV SCH ×4 (05:14→23:20)
[2016-03-17] MEDS: DEXT 5%-NACL 0.45% 1000 ML INJ 1,000 ML IV SCH ×3 (05:16→17:25)
[2016-03-17 05:28] LABS: HEMATOCRIT 37.4 % (39.0-51.0); MEAN CELL VOLUME 83.9 FL (80.0-100.0); MEAN CORPUSCULAR HEMOGLOBIN 28.8 PG (27.0-34.0); MEAN CORPUSCULAR HGB CONC 34.3 % (32.0-36.0); PLATELET COUNT 423 TH/MM3 (150-450); RED BLOOD COUNT 4.46 MIL/MM3 (4.50-5.90); RED CELL DISTRIBUTION WIDTH 15.5 % (11.6-17.2); REVIEW FLAG FINAL; WHITE BLOOD COUNT 16.2 TH/MM3 (4.0-11.0)
[2016-03-17] MEDS: LABETALOL HCL 100 MG TAB PO SCH ×2 (08:03→19:55)
[2016-03-17] MEDS: PHENYTOIN SODIUM 30 MG CAP PO SCH ×3 (08:03→18:22)
[2016-03-17] MEDS: FAMOTIDINE 20 MG TAB PO SCH ×2 (08:03→19:55)
[2016-03-17 08:39] LABS: POTASSIUM 3.3 MEQ/L (3.5-5.1)
--- NOTE | 2016-03-17 09:55 | HHI.IDPN ---
Subjective Subjective Remarks ID COVERAGE Notes reviewed Patient went to surgery, and urology did not see any scrotal abscess, but he did see multiple perirectal abscess He has low-grade temps Reviewed his chart and patient has had a total proctocolectomy back in 2014 for recurrent perirectal abscess I discussed the case with Dr. Wellington, and put in a consult for colorectal surgery evaluation Antibiotics Zosyn Lines PIV Past Medical History Arthritis. Asthma. Anticoagulant therapy. Ulcerative colitis. Anxiety depression. Hypertension. History of hip fracture July 2013. Repaired Previous trac Hx recurrent perirectal abscess Ileostomy Explor lap and total protocolectomy Left leg surgery with rods and pins. Sinus surgery. Craniotomy. Allergies: Coded Allergies: No Known Allergies (Unverified , 03/15/16) Objective . Vital Signs Date Time Temp Pulse Resp B/P Pulse Ox O2 Delivery O2 Flow Rate FiO2 03/17/16 08:32 100.5 78 17 121/57 93 03/17/16 04:00 100.0 62 18 108/55 96 03/17/16 00:00 100.7 70 20 100/50 94 03/16/16 20:00 97.0 61 20 96/55 97 03/16/16 18:01 95 21 03/16/16 16:00 97.8 65 16 96/60 95 03/16/16 14:40 66 16 95 Room Air 03/16/16 14:30 99.1 65 15 112/55 94 Room Air 03/16/16 14:15 69 15 110/62 92 Room Air 03/16/16 14:00 70 14 116/72 93 Room Air 03/16/16 13:45 101.0 76 12 123/75 97 Nasal Cannula 3 03/16/16 12:00 101.8 75 18 95/50 93 03/16/16 03/16/16 03/17/16 15:00 23:00 07:00 Intake Total 2683 ml 1440 ml 320 ml Output Total 410 ml 400 ml 500 ml Balance 2273 ml 1040 ml -180 ml Intake Oral 0 ml 240 ml 320 ml IV Total 2083 ml 1200 ml Other 600 ml Output Urine Total 250 ml 300 ml 350 ml Stool Total 150 ml 100 ml 150 ml Estimated Blood Loss 10 ml # Voids 0 . Laboratory Tests Test 03/15/16 03/16/16 03/17/16 15:23 06:24 04:52 White Blood Count 17.0 TH/MM3 17.9 TH/MM3 16.2 TH/MM3 Red Blood Count 4.36 MIL/MM3 4.28 MIL/MM3 4.46 MIL/MM3 Hemoglobin 13.0 GM/DL 12.1 GM/DL 12.8 GM/DL Hematocrit 37.1 % 36.1 % 37.4 % Mean Corpuscular Volume 85.1 FL 84.3 FL 83.9 FL Mean Corpuscular Hemoglobin 29.7 PG 28.2 PG 28.8 PG Mean Corpuscular Hemoglobin 34.9 % 33.4 % 34.3 % Concent Red Cell Distribution Width 15.6 % 15.4 % 15.5 % Platelet Count 598 TH/MM3 561 TH/MM3 423 TH/MM3 Mean Platelet Volume 6.7 FL 6.6 FL 7.1 FL Neutrophils (%) (Auto) 83.0 % Lymphocytes (%) (Auto) 4.0 % Monocytes (%) (Auto) 7.9 % Eosinophils (%) (Auto) 3.7 % Basophils (%) (Auto) 1.4 % Neutrophils # (Auto) 14.1 TH/MM3 Lymphocytes # (Auto) 0.7 TH/MM3 Monocytes # (Auto) 1.3 TH/MM3 Eosinophils # (Auto) 0.6 TH/MM3 Basophils # (Auto) 0.2 TH/MM3 CBC Comment DIFF FINAL Differential Comment Laboratory Tests Test 03/15/16 03/15/16 03/16/16 03/17/16 15:23 16:00 06:24 07:55 Sodium Level 135 MEQ/L 136 MEQ/L 136 MEQ/L Potassium Level 4.1 MEQ/L 3.4 MEQ/L 3.3 MEQ/L Chloride Level 104 MEQ/L 102 MEQ/L 105 MEQ/L Carbon Dioxide Level 23.4 MEQ/L 25.9 MEQ/L 24.0 MEQ/L Anion Gap 8 MEQ/L 8 MEQ/L 7 MEQ/L Blood Urea Nitrogen 5 MG/DL 5 MG/DL 5 MG/DL Creatinine 0.99 MG/DL 1.17 MG/DL 1.10 MG/DL Estimat Glomerular Filtration 78 ML/MIN 64 ML/MIN 69 ML/MIN Rate Random Glucose 95 MG/DL 96 MG/DL 125 MG/DL Calcium Level 9.1 MG/DL 8.2 MG/DL 7.7 MG/DL Magnesium Level 2.3 MG/DL Lactic Acid Level 1.0 mmol/L Microbiology Date/Time Procedure Status Source Growth 03/15/16 15:15 Aerobic Blood Culture - Preliminary Resulted Blood Peripheral NO GROWTH IN 1 DAY 03/15/16 15:15 Anaerobic Blood Culture - Preliminary Resulted Blood Peripheral NO GROWTH IN 1 DAY 03/15/16 15:20 Gram Stain - Final Resulted Wound Buttock 03/15/16 15:20 Wound Culture - Preliminary Resulted Gram Negative Presley Group D Enterococcus 03/15/16 15:35 Aerobic Blood Culture - Preliminary Resulted Blood Peripheral NO GROWTH IN 1 DAY 03/15/16 15:35 Anaerobic Blood Culture - Preliminary Resulted Blood Peripheral NO GROWTH IN 1 DAY 03/16/16 10:05 Aerobic Blood Culture Received Blood Peripheral Pending 03/16/16 10:05 Anaerobic Blood Culture Received Blood Peripheral Pending 03/16/16 13:25 Gram Stain - Final Resulted Wound Other 03/16/16 13:25 Wound Culture Resulted Wound Other Pending 03/16/16 13:25 Acid Fast Stain Received Wound Other Pending 03/16/16 13:25 Mycobacterial Culture Received Wound Other Pending 03/16/16 13:25 Fungal Smear - Final Resulted Wound Other NO FUNGAL ELEMENTS SEEN. 03/16/16 13:25 Fungal Culture Resulted Wound Other Pending Imaging Scrotum Ultrasound 03/16/16 0600 Signed Impressions: Service Date/Time: Wednesday, March 16, 2016 09:27 - CONCLUSION: Bilateral small scrotal varices . 5 mm cyst left epididymis. Testicles themselves are normal with normal vascularity Tho Che MD Abdomen/Pelvis CT 03/15/16 1513 Signed Impressions: Service Date/Time: February 16:58 - CONCLUSION: Abnormal fluid collection identified within the midline scrotum concerning for abscess which is extending into the right penile shaft. Yenny Abraham MD Lower Extremity Ultrasound 03/15/16 0000 Signed Impressions: Service Date/Time: February 17:27 - CONCLUSION: Normal examination. Yenny Abraham MD Physical Exam GENERAL: Patient is a well-nourished, well-developed male, slightly dysarthric , not in respiratory distress. SKIN: Warm and dry. No rash HEAD, EYES, EARS, NOSE AND THROAT : [place] conjunctiva. No scleral icterus. No injection or drainage. Mucous membranes pink and moist. No oral lesions noted. NECK: Trachea midline. Supple and not tender, no meningeal signs CARDIOVASCULAR: Regular rate and rhythm. RESPIRATORY: Clear to auscultation. Breath sounds equal bilaterally. No rales , wheezing or rhonchi ABDOMEN: Soft, non-tender, nondistended. Bowel sounds present and normoactive. No guarding. No organomegaly. Ileostomy is working EXTREMITIES: No clubbing, cyanosis, or edema. No calf tenderness. PERINEUM: There is copious reddish brown discharge from where he used to have the any, and there is a small open wound from surgery yesterday, erythema over the perineum : Some erythema of scrotum, not swollen, not indurated, slightly tender NEUROLOGICAL: Awake and alert. Has mild dysarthria PSYCH: Calm and cooperative Assessment & Plan Remarks IMPRESSION Perineal cellulitis with abscess No evidence of scrotal abscess per urology Previous total protocolectomy Hx CVA with residual L sided weakness RECOMMENDATION Continue Zosyn Add Vancomycin Consult CRS - D/W Dr Wellington; will sched for surgery Monitor temps Follow C/S Monitor clinically Explained plan to patient Monica Tenorio MD Mar 17, 2016 09:55
--- NOTE | 2016-03-17 09:56 | MB ---
cc: SOLOMON AMBROCIO MD,YASH Clay MD DATE OF CONSULTATION: 03/16/[address] Cooper. REASON FOR CONSULTATION Scrotal abscess. HISTORY OF PRESENT ILLNESS This is a 60-year-old white male who presented to the emergency department with left lower leg pain as well as buttock pain. The patient is a poor historian. He developed muscle spasms as well and was having achiness of the scrotum in addition to generalized body aches. He was evaluated and CT scan of the abdomen and pelvis showed an abnormal fluid collection identified within the midline scrotum concerning for abscess and extending into the right penile shaft. The patient was taken to surgery and underwent I&D of multiple perirectal abscesses and drainage of a copious amount of purulent material. No scrotal abscess was noted. His white blood cell count is elevated. The patient had an elevated temperature of 101.8 degrees. The wound Gram stain has gram-negative aydee. Wound culture is pending. The patient came back from surgery and it is unclear whether he became confused but he pulled out the packing from his wound. Currently he is awake and alert and appears to be lucid. The wound Gram stain noted above is from 03/15/2016. Cultures were taken today during the surgical procedure. PAST MEDICAL HISTORY 1. Ulcerative colitis. 2. Cerebrovascular accident with left-sided hemiparesis. 3. Urinary retention. 4. Hypertension. 5. Anxiety. 6. Depression. 7. Asthma. 8. Arthritis. 9. History of hip fracture in July 2013. 10.Ileostomy. 11.Craniotomy. 12.Sinus surgery. ALLERGIES No known drug allergies. MEDICATIONS 1. Lovenox. 2. Dilantin. 3. Toradol. 4. Flomax. 5. Pepcid. 6. Baclofen. 7. Piperacillin/tazobactam. 8. One vancomycin dose was given yesterday. SOCIAL HISTORY No tobacco use. No alcohol use. 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 FAMILY HISTORY Noncontributory. REVIEW OF SYSTEMS Negative except for pain in the scrotal region and also the perirectal area as well. PHYSICAL EXAMINATION GENERAL: This is a moderately obese male who is in no acute distress. He is awake, alert and oriented. VITAL SIGNS: Temperature 97.8, BP 90/60, respirations 16, heart rate 65. HEENT: Head is atraumatic. Extraocular movements grossly intact. Oropharynx no visible lesions. NECK: Supple. No adenopathy. LUNGS: Clear breath sounds bilateral. HEART: Regular rate and rhythm without audible murmurs, rubs or gallops. ABDOMEN: Bowel sounds present, soft, nontender. The patient has an ileostomy in the lower abdomen which appears functional. : The scrotum appears mildly erythematous. The buttocks also appear erythematous. The patient has an open wound post surgical debridement. No visible necrosis. The redness encompasses the entire perirectal area. EXTREMITIES: No clubbing, cyanosis or edema. SKIN: The patient has white flakes on the forehead and the skin of the forehead has a red hue. NEUROLOGIC: Left-sided weakness of upper and lower extremities with contracture of the left upper extremity. PSYCHIATRIC: The patient appears calm. LABORATORY DATA WBC 17.9, platelets 561, hemoglobin 12.1. Creatinine 1.17, BUN 5, sodium 136, estimated GFR 64. IMPRESSION 1. Perirectal abscesses status post debridement. Culture pending. 2. Leukocytosis secondary to infection. RECOMMENDATIONS 1. Continue piperacillin/tazobactam. 2. Monitor the wound culture. 3. Monitor clinical status. Thank you for this consultation. The patient's progress will be monitored and further recommendations will be given on follow-up. Solomon Ambrocio MD FD/KEVIN /7:05 PM /9:32 AM
[2016-03-17] MEDS ORDERED: Vancomycin Consult Pharmacy 1 EA OTHER SCH (10:00)
[2016-03-17] MEDS: VANCOMYCIN INJ 1,000 MG in SODIUM CHLOR 0.9% 250 ML INJ 250 ML IV SCH ×2 (11:23→21:10)
[2016-03-17] MEDS: ACETAMINOPHEN 325 MG TAB PO PRN (11:59)
[2016-03-17] MEDS: ENOXAPARIN SODIUM 40 MG/0.4 ML SYRINGE SQ SCH (12:50)
[2016-03-17] MEDS ORDERED: ePHEDrine/NS 25 MG/5 ML SYR IV ONE (13:44)
[2016-03-17] MEDS ORDERED: PROPOFOL 200 MG/20 ML AMP IV ONE (13:44)
[2016-03-17] MEDS ORDERED: PHENYLEPH/NS 1000 MCG/10 ML SYR IV ONE (13:44)
[2016-03-17] MEDS ORDERED: ONDANSETRON HCL 4 MG/2 ML VIAL IV PUSH ONE (13:44)
[2016-03-17] MEDS ORDERED: LACTATED RINGER'S 1000 ML INJ 1,000 ML IV ONE (13:44)
--- NOTE | 2016-03-17 15:41 | HHI.PR ---
Subjective Interval History Alert, oriented, just back from surgery, pain is well controlled, has chronic left-sided weakness with edema secondary to old stroke Review of Systems Constitutional Constitutional Remarks 10 systems reviewed and otherwise negative Vitals/Results Intake & Output 03/16/16 03/16/16 03/17/16 15:00 23:00 07:00 Intake Total 2683 ml 1440 ml 320 ml Output Total 410 ml 400 ml 500 ml Balance 2273 ml 1040 ml -180 ml Intake Oral 0 ml 240 ml 320 ml IV Total 2083 ml 1200 ml Other 600 ml Output Urine Total 250 ml 300 ml 350 ml Stool Total 150 ml 100 ml 150 ml Estimated Blood Loss 10 ml # Voids 0 Vital Signs Vital Signs Date Time Temp Pulse Resp B/P Pulse Ox O2 Delivery O2 Flow Rate FiO2 03/17/16 12:00 100.0 72 18 102/57 91 03/17/16 10:29 18 03/17/16 08:48 92 21 03/17/16 08:32 100.5 78 17 121/57 93 03/17/16 08:00 71 03/17/16 04:00 100.0 62 18 108/55 96 03/17/16 00:00 100.7 70 20 100/50 94 03/16/16 20:00 97.0 61 20 96/55 97 03/16/16 18:01 95 21 03/16/16 16:00 97.8 65 16 96/60 95 CBC/BMP: 03/17/16 0452 03/17/16 0755 Lab Results Laboratory Tests Test 03/17/16 03/17/16 04:52 07:55 White Blood Count 16.2 TH/MM3 Red Blood Count 4.46 MIL/MM3 Hemoglobin 12.8 GM/DL Hematocrit 37.4 % Mean Corpuscular Volume 83.9 FL Mean Corpuscular Hemoglobin 28.8 PG Mean Corpuscular Hemoglobin 34.3 % Concent Red Cell Distribution Width 15.5 % Platelet Count 423 TH/MM3 Mean Platelet Volume 7.1 FL Sodium Level 136 MEQ/L Potassium Level 3.3 MEQ/L Chloride Level 105 MEQ/L Carbon Dioxide Level 24.0 MEQ/L Anion Gap 7 MEQ/L Blood Urea Nitrogen 5 MG/DL Creatinine 1.10 MG/DL Estimat Glomerular Filtration 69 ML/MIN Rate Random Glucose 125 MG/DL Calcium Level 7.7 MG/DL Phenytoin (Dilantin) Level 1.0 MCG/ML Physical Exam General General Appearance: Well Developed, Comfortable Eyes Eye Exam: Pupils Reactive Ears & Nose Ears & Nose Exam: Nasal Mucosa [place] Throat Throat Exam: Oral Mucosa [place] & Moist Neck Neck Exam: Neck Supple Pulmonary Resp Exam: Breath Sounds Equal Cardiology CV Exam: Normal Sinus Rhythm Gastrointestinal/Abdomen GI Exam: Soft, Non-Tender, Bowel Sounds Present Genitourinary Remarks Clean dry dressing in place Musculoskeletal MS Remarks Left hemiplegia with edema Integumentary Skin Exam: Warm, Dry Neurologic Neuro Exam: Alert, Awake, Oriented, Speech Clear Psychiatric Psych Exam: Appropriate Responses VTE Prophylaxis VTE Prophylaxis Meds: Lovenox Assessment/Plan Assessment/Plan ASSESSMENT . Scrotal abscess,Status post debridement 03/16/16 . Perirectal abscess, Status post debridement 03/17/16 . Cellulitis. . Leukocytosis. . Hyponatremia. . History of cerebrovascular accident. . Anxiety disorder. . History of ulcerative colitis. . Hypertension Management Pain control Antibiotics Dressing change per surgery Urology, infectious disease and colorectal surgery following Follow white count Follow renal function Follow electrolytes Discussed with nurse Discussed with patient DVT prophylaxis with Lovenox . Naida Whiteside MD Mar 17, 2016 15:41
[2016-03-17] MEDS ORDERED: fentaNYL CITRATE 250 MCG/5 ML AMP ONE (16:30)
[2016-03-17] MEDS ORDERED: *ONDANSETRON 4 MG VIAL PERIprocedural Use ONLY ONE (16:35)
[2016-03-17] MEDS ORDERED: *morphine SULFATE 8 MG/ML PERIprocedure ONLY ONE ×3 (16:35→16:53)
[2016-03-17] MEDS ORDERED: DO NOT ADM ANY ANTICOAGULANT DRUGS XX PRN (16:45)
[2016-03-17] MEDS: oxyCODONE/ACETAMINOPHEN 10 MG/325 MG TAB PO PRN (17:05)
[2016-03-17] MEDS ORDERED: *HYDROmorphone PF 1 MG VIAL PERIprocedural Use ONLY ONE (17:07)
[2016-03-17] MEDS: KETOROLAC TROMETHAMINE 10 MG TAB PO PRN (17:42)
[2016-03-17] MEDS: TAMSULOSIN HCL 0.4 MG CAP PO SCH (19:55)
[2016-03-18] VITALS (7 sets, daily range): BP systolic 99–115; BP diastolic 56–62; PULSE 39–53; RESP 16–20; TEMP 95.4–96; O2SAT 95–98
[2016-03-18] MEDS: DEXT 5%-NACL 0.45% 1000 ML INJ 1,000 ML IV SCH ×2 (02:45→12:49)
[2016-03-18] MEDS: PIPERACIL-TAZO 4.5 GM PREMIX 100 ML IV SCH ×4 (04:39→21:56)
[2016-03-18] MEDS ORDERED: POTASSIUM CHLORIDE 10 MEQ CONTROLLED RELEASE TAB PO ONE (06:15)
[2016-03-18] MEDS: PHENYTOIN SODIUM 100 MG CAP PO SCH ×2 (08:14→21:55)
[2016-03-18] MEDS: POTASSIUM CHLORIDE 20 MEQ CONTROLLED RELEASE TAB PO SCH ×2 (08:14→21:56)
[2016-03-18] MEDS: FAMOTIDINE 20 MG TAB PO SCH ×2 (08:14→21:55)
[2016-03-18] MEDS: LABETALOL HCL 100 MG TAB PO SCH ×2 (08:15→21:00)
[2016-03-18 10:25] LABS: BICARBONATE 24.7 MEQ/L (21.0-32.0); MAGNESIUM 2.3 MG/DL (1.5-2.5); POTASSIUM 3.9 MEQ/L (3.5-5.1)
[2016-03-18] MEDS: oxyCODONE/ACETAMINOPHEN 10 MG/325 MG TAB PO PRN ×2 (12:09→21:58)
[2016-03-18] MEDS: VANCOMYCIN INJ 1,000 MG in SODIUM CHLOR 0.9% 250 ML INJ 250 ML IV SCH ×2 (12:10→23:10)
--- NOTE | 2016-03-18 12:13 | HHI.IDPN ---
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 Asthma. Anticoagulant therapy. Ulcerative colitis. Anxiety depression. Hypertension. History of hip fracture July 2013. Repaired Previous trac Hx recurrent perirectal abscess Ileostomy Explor lap and total protocolectomy Left leg surgery with rods and pins. Sinus surgery. Craniotomy. Allergies: Coded Allergies: No Known Allergies (Unverified , 03/15/16) Objective . Vital Signs Date Time Temp Pulse Resp B/P Pulse Ox O2 Delivery O2 Flow Rate FiO2 03/18/16 10:34 98 21 03/18/16 08:00 95.4 45 16 106/58 96 03/18/16 04:00 96.0 48 20 115/60 95 03/18/16 00:00 96.0 50 20 112/62 95 03/17/16 21:51 96 03/17/16 20:06 53 03/17/16 20:00 96.7 59 21 111/65 96 03/17/16 18:24 18 03/17/16 17:51 18 03/17/16 17:51 18 03/17/16 17:20 98.2 03/17/16 17:15 70 14 124/80 93 Nasal Cannula 2 03/17/16 17:00 84 15 119/77 94 Nasal Cannula 2 03/17/16 16:45 74 15 104/58 94 Nasal Cannula 2 03/17/16 16:30 104 14 123/68 92 Nasal Cannula 2 03/17/16 16:20 98.3 79 14 120/68 96 Simple Mask 6 03/17/16 16:00 99.5 69 18 107/56 93 03/17/16 03/17/16 03/18/16 15:00 23:00 07:00 Intake Total 2245 ml 2022 ml 1346 ml Output Total 500 ml 2575 ml 1200 ml Balance 1745 ml -553 ml 146 ml Intake Oral 240 ml 170 ml 240 ml IV Total 2005 ml 352 ml 1106 ml Other 1500 ml Output Urine Total 250 ml 2175 ml 1200 ml Stool Total 250 ml 300 ml Estimated Blood Loss 100 ml # Bowel Movements 0 . Laboratory Tests Test 03/17/16 04:52 White Blood Count 16.2 TH/MM3 Red Blood Count 4.46 MIL/MM3 Hemoglobin 12.8 GM/DL Hematocrit 37.4 % Mean Corpuscular Volume 83.9 FL Mean Corpuscular Hemoglobin 28.8 PG Mean Corpuscular Hemoglobin 34.3 % Concent Red Cell Distribution Width 15.5 % Platelet Count 423 TH/MM3 Mean Platelet Volume 7.1 FL Laboratory Tests Test 03/17/16 03/18/16 07:55 09:43 Sodium Level 136 MEQ/L 145 MEQ/L Potassium Level 3.3 MEQ/L 3.9 MEQ/L Chloride Level 105 MEQ/L 112 MEQ/L Carbon Dioxide Level 24.0 MEQ/L 24.7 MEQ/L Anion Gap 7 MEQ/L 8 MEQ/L Blood Urea Nitrogen 5 MG/DL 5 MG/DL Creatinine 1.10 MG/DL 1.14 MG/DL Estimat Glomerular Filtration 69 ML/MIN 66 ML/MIN Rate Random Glucose 125 MG/DL 191 MG/DL Calcium Level 7.7 MG/DL 8.2 MG/DL Phosphorus Level 1.4 MG/DL Magnesium Level 2.3 MG/DL Microbiology Date/Time Procedure Status Source Growth 03/15/16 15:15 Aerobic Blood Culture - Preliminary Resulted Blood Peripheral NO GROWTH IN 3 DAYS 03/15/16 15:15 Anaerobic Blood Culture - Preliminary Resulted Blood Peripheral NO GROWTH IN 3 DAYS 03/15/16 15:20 Gram Stain - Final Complete Wound Buttock 03/15/16 15:20 Wound Culture - Final Complete Proteus Mirabilis Enterococcus Faecalis 03/15/16 15:35 Aerobic Blood Culture - Preliminary Resulted Blood Peripheral NO GROWTH IN 3 DAYS 03/15/16 15:35 Anaerobic Blood Culture - Preliminary Resulted Blood Peripheral NO GROWTH IN 3 DAYS 03/16/16 10:05 Aerobic Blood Culture - Preliminary Resulted Blood Peripheral NO GROWTH IN 2 DAYS 03/16/16 10:05 Anaerobic Blood Culture - Preliminary Resulted Blood Peripheral NO GROWTH IN 2 DAYS 03/16/16 13:25 Gram Stain - Final Complete Wound Other 03/16/16 13:25 Wound Culture - Final Complete Wound Other MODERATE GROWTH NORMAL SKIN RAKEL... 03/16/16 13:25 Acid Fast Stain Received Wound Other Pending 03/16/16 13:25 Mycobacterial Culture Received Wound Other Pending 03/16/16 13:25 Fungal Smear - Final Resulted Wound Other NO FUNGAL ELEMENTS SEEN. 03/16/16 13:25 Fungal Culture Resulted Wound Other Pending Imaging Scrotum Ultrasound 03/16/16 0600 Signed Impressions: Service Date/Time: Wednesday, March 16, 2016 09:27 - CONCLUSION: Bilateral small scrotal varices . 5 mm cyst left epididymis. Testicles themselves are normal with normal vascularity Tho Che MD Abdomen/Pelvis CT 03/15/16 1513 Signed Impressions: Service Date/Time: February 16:58 - CONCLUSION: Abnormal fluid collection identified within the midline scrotum concerning for abscess which is extending into the right penile shaft. Yenny Abraham MD Lower Extremity Ultrasound 03/15/16 0000 Signed Impressions: Service Date/Time: February 17:27 - CONCLUSION: Normal examination. Yenny Abraham MD Physical Exam GENERAL: Awake and alert, not in respiratory distress. SKIN: Warm and dry. No rash HEENT: [place] conjunctiva. No scleral icterus. No injection or drainage. Mucous membranes pink and moist. No oral lesions noted. NECK: Trachea midline. Supple and not tender, no meningeal signs CARDIOVASCULAR: Regular rate and rhythm. RESPIRATORY: Clear to auscultation. Breath sounds equal bilaterally. No rales , wheezing or rhonchi ABDOMEN: Soft, non-tender, nondistended. Bowel sounds present and normoactive. No guarding. No organomegaly. Ileostomy is working EXTREMITIES: No clubbing, cyanosis, or edema. No calf tenderness. PERINEUM: Dressing in place. : Some erythema of scrotum, not swollen, not indurated, slightly tender NEUROLOGICAL: Awake and alert. Has mild dysarthria PSYCH: Calm and cooperative Assessment & Plan Remarks IMPRESSION Perineal cellulitis with abscess No evidence of scrotal abscess per urology Previous total protocolectomy Hx CVA with residual L sided weakness RECOMMENDATION Continue Zosyn Continue Vancomycin Follow C/S Monitor temps Follow C/S Monitor clinically Repeat CBC Monica Tenorio MD Mar 18, 2016 12:13
--- NOTE | 2016-03-18 13:36 | HHI.PR ---
Subjective Interval History Alert, verbal, emotionally labile, depressed, nurse requested that the patient gets psychiatric consultation, patient seen and presence of his , pain well- controlled Review of Systems Constitutional Constitutional Remarks 10 systems reviewed and otherwise negative Vitals/Results Intake & Output 03/17/16 03/17/16 03/18/16 15:00 23:00 07:00 Intake Total 2245 ml 2022 ml 1346 ml Output Total 500 ml 2575 ml 1200 ml Balance 1745 ml -553 ml 146 ml Intake Oral 240 ml 170 ml 240 ml IV Total 2005 ml 352 ml 1106 ml Other 1500 ml Output Urine Total 250 ml 2175 ml 1200 ml Stool Total 250 ml 300 ml Estimated Blood Loss 100 ml # Bowel Movements 0 Vital Signs Vital Signs Date Time Temp Pulse Resp B/P Pulse Ox O2 Delivery O2 Flow Rate FiO2 03/18/16 12:00 95.7 53 16 99/59 96 03/18/16 10:34 98 21 03/18/16 08:00 95.4 45 16 106/58 96 03/18/16 04:00 96.0 48 20 115/60 95 03/18/16 00:00 96.0 50 20 112/62 95 03/17/16 21:51 96 03/17/16 20:06 53 03/17/16 20:00 96.7 59 21 111/65 96 03/17/16 18:24 18 03/17/16 17:51 18 03/17/16 17:51 18 03/17/16 17:20 98.2 03/17/16 17:15 70 14 124/80 93 Nasal Cannula 2 03/17/16 17:00 84 15 119/77 94 Nasal Cannula 2 03/17/16 16:45 74 15 104/58 94 Nasal Cannula 2 03/17/16 16:30 104 14 123/68 92 Nasal Cannula 2 03/17/16 16:20 98.3 79 14 120/68 96 Simple Mask 6 03/17/16 16:00 99.5 69 18 107/56 93 CBC/BMP: 03/17/16 0452 03/18/16 0943 Lab Results Laboratory Tests Test 03/18/16 09:43 Sodium Level 145 MEQ/L Potassium Level 3.9 MEQ/L Chloride Level 112 MEQ/L Carbon Dioxide Level 24.7 MEQ/L Anion Gap 8 MEQ/L Blood Urea Nitrogen 5 MG/DL Creatinine 1.14 MG/DL Estimat Glomerular Filtration 66 ML/MIN Rate Random Glucose 191 MG/DL Calcium Level 8.2 MG/DL Phosphorus Level 1.4 MG/DL Magnesium Level 2.3 MG/DL Physical Exam General General Appearance: Well Developed, Comfortable Eyes Eye Exam: Pupils Reactive Ears & Nose Ears & Nose Exam: Nasal Mucosa [place] Throat Throat Exam: Oral Mucosa [place] & Moist Neck Neck Exam: Neck Supple Pulmonary Resp Exam: Breath Sounds Equal Cardiology CV Exam: Normal Sinus Rhythm Gastrointestinal/Abdomen GI Exam: Soft, Non-Tender, Bowel Sounds Present GI Remarks Colostomy bag in place Genitourinary Remarks Clean dry dressing in place Musculoskeletal MS Remarks Left hemiplegia with edema Integumentary Skin Exam: Warm, Dry Neurologic Neuro Exam: Alert, Awake, Oriented, Speech Clear Psychiatric Psych Exam: Appropriate Responses VTE Prophylaxis VTE Prophylaxis Meds: Lovenox Assessment/Plan Assessment/Plan ASSESSMENT . Scrotal abscess,Status post debridement 03/16/16 . Perirectal abscess, Status post debridement 03/17/16 . Cellulitis. . Depression . Leukocytosis. . Hyponatremia. . History of cerebrovascular accident. . Anxiety disorder. . History of ulcerative colitis. . Hypertension Management Consults psychiatry Pain control Antibiotics Dressing change per surgery Urology, infectious disease and colorectal surgery following Follow white count Follow renal function Follow electrolytes Discussed with nurse Discussed with patient DVT prophylaxis with Lovenox . Naida Whiteside MD Mar 18, 2016 13:36
[2016-03-18] MEDS ORDERED: POTASSIUM PHOSPHATE INJ 30 MMOL in SODIUM CHLOR 0.9% 250 ML INJ 250 ML IV ONE (15:00)
[2016-03-18] MEDS: KETOROLAC TROMETHAMINE 10 MG TAB PO PRN (16:10)
[2016-03-18] MEDS: ENOXAPARIN SODIUM 40 MG/0.4 ML SYRINGE SQ SCH (16:11)
--- NOTE | 2016-03-18 20:14 | HHI.PR ---
Subjective Remarks C/R Surg POD # 1 afebrile, VSS UO good jason PO Objective - Vital Signs Date Time Temp Pulse Resp B/P Pulse Ox O2 Delivery O2 Flow Rate FiO2 03/18/16 17:10 18 03/18/16 16:00 96.0 50 104/56 96 03/18/16 10:34 21 03/17/16 17:15 Nasal Cannula 2 Result Diagram: 03/17/16 0452 03/18/16 0943 Other Results PE alert Abd - soft, stoma functioning Rectal - clean wounds, less induration A/P Assessment and Plan Imp: stable post-op OOB wet/dry dressings, irrigate may need EUA again Willie Wellington MD Mar 18, 2016 20:14
[2016-03-18] MEDS: TAMSULOSIN HCL 0.4 MG CAP PO SCH (21:55)
[2016-03-18] MEDS ORDERED: PHARMACY ORDERED LAB XX ONE (22:45)
[2016-03-18 23:06] LABS: BICARBONATE 26.8 MEQ/L (21.0-32.0); POTASSIUM 4.3 MEQ/L (3.5-5.1); VANCOMYCIN TROUGH 11.7 MCG/ML (5.0-10.0)
[2016-03-19] VITALS (7 sets, daily range): BP systolic 100–125; BP diastolic 60–71; PULSE 50–61; RESP 17–21; TEMP 96–97.6; O2SAT 94–97
[2016-03-19] MEDS: PIPERACIL-TAZO 4.5 GM PREMIX 100 ML IV SCH ×3 (04:53→16:28)
[2016-03-19] MEDS: HYDROmorphone HCL PF 1 MG/ML VIAL IV PUSH PRN ×5 (04:53→22:55)
[2016-03-19] MEDS: DEXT 5%-NACL 0.45% 1000 ML INJ 1,000 ML IV SCH ×2 (04:54→15:29)
[2016-03-19 05:44] LABS: BASOPHIL # 0.1 TH/MM3 (0-0.2); BASOPHIL % 0.9 % (0.0-2.0); EOSINOPHIL # 0.3 TH/MM3 (0-0.4); EOSINOPHIL % 3.7 % (0.0-4.0); HEMATOCRIT 31.8 % (39.0-51.0); HEMO FLAGS DIFF FINAL; LYMPH % 8.7 % (9.0-44.0); LYMPHOCYTE # 0.8 TH/MM3 (1.0-4.8); MEAN CORPUSCULAR HEMOGLOBIN 28.3 PG (27.0-34.0); MEAN CORPUSCULAR HGB CONC 33.3 % (32.0-36.0); MONO % 8.1 % (0.0-8.0); NEUT % 78.6 % (16.0-70.0); PLATELET COUNT 485 TH/MM3 (150-450); RED BLOOD COUNT 3.74 MIL/MM3 (4.50-5.90); RED CELL DISTRIBUTION WIDTH 15.3 % (11.6-17.2); WHITE BLOOD COUNT 8.9 TH/MM3 (4.0-11.0)
[2016-03-19] MEDS: LABETALOL HCL 100 MG TAB PO SCH ×2 (07:40→21:55)
[2016-03-19] MEDS: FAMOTIDINE 20 MG TAB PO SCH ×2 (07:42→21:55)
[2016-03-19] MEDS: POTASSIUM CHLORIDE 20 MEQ CONTROLLED RELEASE TAB PO SCH ×2 (07:42→21:55)
[2016-03-19] MEDS: PHENYTOIN SODIUM 100 MG CAP PO SCH ×2 (07:42→21:55)
[2016-03-19] MEDS: VANCOMYCIN INJ 1,000 MG in SODIUM CHLOR 0.9% 250 ML INJ 250 ML IV SCH (10:40)
--- NOTE | 2016-03-19 10:54 | HHI.PR ---
Subjective Interval History Alert, oriented, feels better Review of Systems Constitutional Constitutional Remarks 10 systems reviewed and otherwise negative Vitals/Results Intake & Output 03/18/16 03/18/16 03/19/16 15:00 23:00 07:00 Intake Total 1499 ml 1090 ml 1040 ml Output Total 550 ml 650 ml 600 ml Balance 949 ml 440 ml 440 ml Intake Oral 480 ml 240 ml 240 ml IV Total 850 ml 800 ml Packed Cells 1019 ml Output Urine Total 300 ml 450 ml 600 ml Stool Total 250 ml 200 ml # Bowel Movements 0 Vital Signs Vital Signs Date Time Temp Pulse Resp B/P Pulse Ox O2 Delivery O2 Flow Rate FiO2 03/19/16 08:00 96.4 50 17 103/61 97 03/19/16 04:00 96.0 50 21 120/71 95 03/19/16 00:01 96.0 53 20 106/60 97 03/18/16 20:00 96.0 53 19 105/59 96 03/18/16 17:10 18 03/18/16 16:00 96.0 50 16 104/56 96 03/18/16 13:09 18 03/18/16 12:00 95.7 53 16 99/59 96 CBC/BMP: 03/19/16 0440 03/18/16 2219 Lab Results Laboratory Tests Test 03/18/16 03/19/16 22:19 04:40 Sodium Level 145 MEQ/L Potassium Level 4.3 MEQ/L Chloride Level 111 MEQ/L Carbon Dioxide Level 26.8 MEQ/L Anion Gap 7 MEQ/L Blood Urea Nitrogen 4 MG/DL Creatinine 1.08 MG/DL Estimat Glomerular Filtration 70 ML/MIN Rate Random Glucose 193 MG/DL Calcium Level 7.9 MG/DL Phosphorus Level 3.5 MG/DL Vancomycin Level Trough 11.7 MCG/ML White Blood Count 8.9 TH/MM3 Red Blood Count 3.74 MIL/MM3 Hemoglobin 10.6 GM/DL Hematocrit 31.8 % Mean Corpuscular Volume 85.0 FL Mean Corpuscular Hemoglobin 28.3 PG Mean Corpuscular Hemoglobin 33.3 % Concent Red Cell Distribution Width 15.3 % Platelet Count 485 TH/MM3 Mean Platelet Volume 6.9 FL Neutrophils (%) (Auto) 78.6 % Lymphocytes (%) (Auto) 8.7 % Monocytes (%) (Auto) 8.1 % Eosinophils (%) (Auto) 3.7 % Basophils (%) (Auto) 0.9 % Neutrophils # (Auto) 7.0 TH/MM3 Lymphocytes # (Auto) 0.8 TH/MM3 Monocytes # (Auto) 0.7 TH/MM3 Eosinophils # (Auto) 0.3 TH/MM3 Basophils # (Auto) 0.1 TH/MM3 CBC Comment DIFF FINAL Differential Comment Physical Exam General General Appearance: Well Developed, Comfortable Eyes Eye Exam: Pupils Reactive Ears & Nose Ears & Nose Exam: Nasal Mucosa [place] Throat Throat Exam: Oral Mucosa [place] & Moist Neck Neck Exam: Neck Supple Pulmonary Resp Exam: Breath Sounds Equal Cardiology CV Exam: Normal Sinus Rhythm Gastrointestinal/Abdomen GI Exam: Soft, Non-Tender, Bowel Sounds Present GI Remarks Colostomy bag in place Genitourinary Remarks Clean dry dressing in place Musculoskeletal MS Remarks Left hemiplegia with edema Integumentary Skin Exam: Warm, Dry Neurologic Neuro Exam: Alert, Awake, Oriented, Speech Clear Psychiatric Psych Exam: Appropriate Responses VTE Prophylaxis VTE Prophylaxis Meds: Lovenox Assessment/Plan Assessment/Plan ASSESSMENT . Scrotal abscess,Status post debridement 03/16/16 . Perirectal abscess, Status post debridement 03/17/16 . Cellulitis . Proteus and enterococcus faecalis reported on cultures . Depression . History of cerebrovascular accident. . Anxiety disorder. . History of ulcerative colitis. . Hypertension Management Antibiotics changed to Unasyn Consult psychiatry Pain control Dressing change per surgery Urology, infectious disease and colorectal surgery following Follow white count Follow renal function Follow electrolytes Discussed with nurse Discussed with patient DVT prophylaxis with Lovenox . Naida Whiteside MD Mar 19, 2016 10:54
--- NOTE | 2016-03-19 15:06 | PD.CONS ---
Provisional Diagnosis Admission Date Mar 15, 2016 at 18:11 History of Present Illness Service Psychiatry Consult Requested By Primary Care Physician Torres Kilgore, DO HPI Patient was visited twice by psychiatry team, but in both occasions he had visitors and he stated he does not really need to see a psychiatrist. Case was informed to nurse in charge. Please reassess the need of psychiatric care and reconsult or call me directly to my phone: [phone]. Thanks!!! Past Family Social History Coded Allergies: No Known Allergies (Unverified , 03/15/16) Reported Medications Tamsulosin (Flomax)0.4 Mg Cap0.4 Mg PO HS #30 CAP Ref 0 03/15/16 Levetiracetam (Keppra)500 Mg [id number] Mg PO TID #60 TAB Ref 0 03/15/16 Fluoxetine (Prozac)10 Mg Cap10 Mg PO BID #30 CAP Ref 0 03/15/16 Baclofen 10 Mg Tab10 Mg PO Q8HR PRN (MUSCLE SPASM) Ref 0 03/15/16 Aspirin 325 Mg [id number] Mg PO DAILY #30 TAB Ref 0 03/15/16 Amphetamine-Dextroamphetamine (Adderall)15 Mg Tab15 Mg PO BID #60 TAB Ref 0 Avoid late evening doses. Space doses at least 4 to 6 hours if more than once/day dosing. 03/15/16 Labetalol 100 Mg [id number] Mg PO BID Ref 0 03/15/16 Phenytoin Extended (Dilantin)30 Mg Cap30 Mg PO TID #90 CAP Ref 0 03/15/16 Baclofen 10 Mg Tab10 Mg PO TID PRN (MUSCLE SPASM) Ref 0 03/15/16 Tamsulosin (Flomax)0.4 Mg Cap0.4 Mg PO HS #30 CAP Ref 0 03/15/16 Current Medications Medications (Trade) Dose Ordered Sig/Li Route Start Time Stop Time Status Last Admin (Lioresal) 10 mg TID PRN PO 03/15/16 18:45 03/15/16 21:34 Tamsulosin HCl 0.4 mg 0.4 mg HS PO 03/15/16 21:00 03/18/16 21:55 Piperacillin Sod/ Tazobactam Sod 100 ml @ 200 mls/hr Q6H IV 03/16/16 00:00 03/19/16 12:00 (D5W-02/19 NS 1000 ml Inj) 1,000 ml @ 75 mls/hr [id number] IV 03/15/16 18:45 03/19/16 04:54 (Pepcid) 20 mg BID PO 03/15/16 21:00 03/19/16 07:42 (Lovenox Inj) 40 mg Q24H SQ 03/16/16 16:00 03/18/16 16:11 (Toradol) 10 mg Q6H PRN PO 03/16/16 01:00 03/21/16 00:59 03/18/16 16:10 (Dilaudid Pf Inj) 1 mg Q4H PRN IV PUSH 03/16/16 01:00 03/19/16 14:28 (Trandate) 50 mg BID PO 03/16/16 21:00 03/17/16 08:03 (Tylenol) 650 mg Q6H PRN PO 03/16/16 10:00 03/17/16 11:59 Miscellaneous 1 ea 1 ea UNSCH PRN OTHER 03/16/16 09:15 Vancomycin HCl 1000 mg/Sodium Chloride 250 ml @ 250 mls/hr Q12H IV 03/17/16 11:00 03/19/16 10:40 (Vancomycin Consult Pharmacy) 0 ml @ 0 mls/hr UNSCH OTHER 03/17/16 10:00 (Percocet 10-325 Mg) 2 tab Q6H PRN PO 03/17/16 16:30 03/18/16 21:58 (Dilantin) 300 mg BID PO 03/18/16 09:00 03/19/16 07:42 (KCl) 20 meq Q12HR PO 03/18/16 09:00 03/19/16 07:42 Physical Exam Vital Signs Vital Signs Date Time Temp Pulse Resp B/P Pulse Ox O2 Delivery O2 Flow Rate FiO2 03/19/16 12:45 96 21 03/19/16 12:00 97.6 59 18 100/64 03/17/16 17:15 Nasal Cannula 2 I/O 03/18/16 03/18/16 03/19/16 08:00 16:00 00:00 Intake Total 1346 ml 1499 ml 1090 ml Output Total 1200 ml 550 ml 650 ml Balance 146 ml 949 ml 440 ml Assessment & Plan Problem List: (1) Scrotal abscess Assessment & Plan: Patient was visited twice by psychiatry team, but in both occasions he had visitors and he stated he does not really need to see a psychiatrist. Case was informed to nurse in charge. Please reassess the need of psychiatric care and reconsult or call me directly to my phone: [phone]. Thanks!!! ICD Code: N49.2 Assessment & Plan Estimated LOS: days Trey Crabtree MD Mar 19, 2016 15:06
[2016-03-19] MEDS: ENOXAPARIN SODIUM 40 MG/0.4 ML SYRINGE SQ SCH (16:28)
--- NOTE | 2016-03-19 17:05 | HHI.IDPN ---
Note Infectious Disease Note Patient feels okay but continues to complain of pain. Afebrile. Wound culture has proteus and enterococci. PAST MEDICAL HISTORY 1. Ulcerative colitis. 2. Cerebrovascular accident with left-sided hemiparesis. 3. Urinary retention. 4. Hypertension. 5. Anxiety. 6. Depression. 7. Asthma. 8. Arthritis. 9. History of hip fracture in July 2013. 10.Ileostomy. 11.Craniotomy. 12.Sinus surgery. ALLERGIES No known drug allergies. MEDICATIONS Piperacillin/tazobactam. Vancomycin. OBJECTIVE: Vital Signs Date Time Temp Pulse Resp B/P Pulse Ox O2 Delivery O2 Flow Rate FiO2 03/19/16 12:45 96 21 03/19/16 12:00 97.6 59 18 100/64 95 03/19/16 08:00 96.4 50 17 103/61 97 03/19/16 04:00 96.0 50 21 120/71 95 03/19/16 00:01 96.0 53 20 106/60 97 03/18/16 20:00 96.0 53 19 105/59 96 03/18/16 17:10 18 Laboratory Tests Test 03/19/16 04:40 White Blood Count 8.9 TH/MM3 Red Blood Count 3.74 MIL/MM3 Hemoglobin 10.6 GM/DL Hematocrit 31.8 % Mean Corpuscular Volume 85.0 FL Mean Corpuscular Hemoglobin 28.3 PG Mean Corpuscular Hemoglobin 33.3 % Concent Red Cell Distribution Width 15.3 % Platelet Count 485 TH/MM3 Mean Platelet Volume 6.9 FL Neutrophils (%) (Auto) 78.6 % Lymphocytes (%) (Auto) 8.7 % Monocytes (%) (Auto) 8.1 % Eosinophils (%) (Auto) 3.7 % Basophils (%) (Auto) 0.9 % Neutrophils # (Auto) 7.0 TH/MM3 Lymphocytes # (Auto) 0.8 TH/MM3 Monocytes # (Auto) 0.7 TH/MM3 Eosinophils # (Auto) 0.3 TH/MM3 Basophils # (Auto) 0.1 TH/MM3 CBC Comment DIFF FINAL Differential Comment Laboratory Tests Test 03/18/16 03/18/16 09:43 22:19 Sodium Level 145 MEQ/L 145 MEQ/L Potassium Level 3.9 MEQ/L 4.3 MEQ/L Chloride Level 112 MEQ/L 111 MEQ/L Carbon Dioxide Level 24.7 MEQ/L 26.8 MEQ/L Anion Gap 8 MEQ/L 7 MEQ/L Blood Urea Nitrogen 5 MG/DL 4 MG/DL Creatinine 1.14 MG/DL 1.08 MG/DL Estimat Glomerular Filtration 66 ML/MIN 70 ML/MIN Rate Random Glucose 191 MG/DL 193 MG/DL Calcium Level 8.2 MG/DL 7.9 MG/DL Phosphorus Level 1.4 MG/DL 3.5 MG/DL Magnesium Level 2.3 MG/DL PHYSICAL EXAMINATION GENERAL: No acute distress. He is awake, alert and oriented. HEENT: Extraocular movements grossly intact. Oropharynx has no visible lesions. NECK: Supple. No adenopathy. LUNGS: Clear breath sounds. HEART: Regular rate and rhythm without audible murmurs, rubs or gallops. ABDOMEN: Bowel sounds present, soft, nontender. The patient has an ileostomy in the lower abdomen which is functioning. : The scrotum appears mildly erythematous, less swollen. The buttocks has less erythema. Open wound post surgical debridement at the buttock is being packed. EXTREMITIES: No clubbing, cyanosis or edema. SKIN: No ino. NEUROLOGIC: Left-sided weakness of upper and lower extremities with contracture of the left upper extremity. PSYCHIATRIC: The patient appears calm. IMPRESSION 1. Perirectal abscesses status post debridement. Proteus and enterococci. 2. Leukocytosis secondary to infection. Improved. RECOMMENDATIONS 1. Stop piperacillin/tazobactam. 2. Stop Vancomycin. 3. Start Unasyn. Ibrahima Ambrocio MD Mar 19, 2016 17:05
--- NOTE | 2016-03-19 21:40 | HHI.PR ---
Subjective Remarks C/R Surg POD # 2 afebrile, VSS UO good jason PO Objective - Vital Signs Date Time Temp Pulse Resp B/P Pulse Ox O2 Delivery O2 Flow Rate FiO2 03/19/16 16:00 96.1 57 17 118/69 96 03/19/16 12:45 21 03/17/16 17:15 Nasal Cannula 2 Result Diagram: 03/19/16 0440 03/18/16 2219 Objective Remarks PE alert Abd -s oft, wounds clean still open, less induration A/P Assessment and Plan Imp: OOB wet/dry dressings, irrigate DC plans Willie Wellington MD Mar 19, 2016 21:40
[2016-03-19] MEDS: AMPICILLIN-SULBACTAM INJ 3 GM in SODIUM CHLORIDE 0.9% INJ 100 ML IV SCH (21:54)
[2016-03-19] MEDS: TAMSULOSIN HCL 0.4 MG CAP PO SCH (21:55)
[2016-03-20] VITALS: BP 111/65; PULSE 60; RESP 20; TEMP 97.9; O2SAT 93
[2016-03-20] MEDS: AMPICILLIN-SULBACTAM INJ 3 GM in SODIUM CHLORIDE 0.9% INJ 100 ML IV SCH ×4 (02:44→21:36)
[2016-03-20] MEDS: HYDROmorphone HCL PF 1 MG/ML VIAL IV PUSH PRN ×3 (02:44→18:58)
[2016-03-20 04:00] VITALS: BP 127/70; PULSE 63; RESP 20; TEMP 97.1; O2SAT 95
[2016-03-20] MEDS: DEXT 5%-NACL 0.45% 1000 ML INJ 1,000 ML IV SCH ×2 (04:49→18:09)
[2016-03-20] MEDS: oxyCODONE/ACETAMINOPHEN 10 MG/325 MG TAB PO PRN ×2 (05:56→15:54)
[2016-03-20 08:00] VITALS: BP 117/71; PULSE 63; RESP 18; TEMP 97.4; O2SAT 92
[2016-03-20] MEDS: LABETALOL HCL 100 MG TAB PO SCH ×2 (09:00→21:34)
[2016-03-20] MEDS: POTASSIUM CHLORIDE 20 MEQ CONTROLLED RELEASE TAB PO SCH ×2 (10:02→21:33)
[2016-03-20] MEDS: PHENYTOIN SODIUM 100 MG CAP PO SCH ×2 (10:03→21:33)
[2016-03-20] MEDS: FAMOTIDINE 20 MG TAB PO SCH ×2 (10:04→21:33)
[2016-03-20 12:00] VITALS: BP 100/61; PULSE 66; RESP 17; TEMP 97.6; O2SAT 94
[2016-03-20] MEDS: ENOXAPARIN SODIUM 40 MG/0.4 ML SYRINGE SQ SCH (15:55)
[2016-03-20 16:00] VITALS: BP 130/75; PULSE 62; RESP 16; TEMP 98; O2SAT 95
--- NOTE | 2016-03-20 17:30 | HHI.PR ---
Subjective Remarks C/R Surg POD # 3 afebrile, VSS UO good jason PO Objective - Vital Signs Date Time Temp Pulse Resp B/P Pulse Ox O2 Delivery O2 Flow Rate FiO2 03/20/16 16:00 98.0 62 16 130/75 95 03/19/16 12:45 21 03/17/16 17:15 Nasal Cannula 2 Result Diagram: 03/19/16 0440 03/18/16 2219 Objective Remarks PE alert Abd -s oft, wounds clean still open, less induration, less discharge A/P Assessment and Plan Imp: OOB wet/dry dressings, irrigate DC plans - dc Willie Hanson MD Mar 20, 2016 17:30
[2016-03-20 20:00] VITALS: BP 121/71; PULSE 66; RESP 18; TEMP 96.8; O2SAT 95
[2016-03-20] MEDS: TAMSULOSIN HCL 0.4 MG CAP PO SCH (21:33)
--- NOTE | 2016-03-20 22:39 | HHI.PR ---
Subjective Interval History Alert, oriented, complaining of poorly controlled pain Review of Systems Constitutional Constitutional Remarks 10 systems reviewed and otherwise negative Vitals/Results Intake & Output 03/19/16 03/19/16 03/20/16 15:00 23:00 07:00 Intake Total 1752 ml 705 ml 680 ml Output Total 775 ml 600 ml 1300 ml Balance 977 ml 105 ml -620 ml Intake Oral 1200 ml 240 ml 480 ml IV Total 552 ml 465 ml 200 ml Output Urine Total 250 ml 300 ml 700 ml Stool Total 525 ml 300 ml 600 ml Vital Signs Vital Signs Date Time Temp Pulse Resp B/P Pulse Ox O2 Delivery O2 Flow Rate FiO2 03/20/16 16:00 98.0 62 16 130/75 95 03/20/16 12:00 97.6 66 17 100/61 94 03/20/16 08:00 97.4 63 18 117/71 92 03/20/16 04:00 97.1 63 20 127/70 95 03/20/16 00:00 97.9 60 20 111/65 93 CBC/BMP: 03/19/16 0440 03/18/16 2219 Physical Exam General General Appearance: Well Developed, Comfortable Eyes Eye Exam: Pupils Reactive Ears & Nose Ears & Nose Exam: Nasal Mucosa [place] Throat Throat Exam: Oral Mucosa [place] & Moist Neck Neck Exam: Neck Supple Pulmonary Resp Exam: Breath Sounds Equal Cardiology CV Exam: Normal Sinus Rhythm Gastrointestinal/Abdomen GI Exam: Soft, Non-Tender, Bowel Sounds Present GI Remarks Colostomy bag in place Genitourinary Remarks Clean dry dressing in place Musculoskeletal MS Remarks Left hemiplegia with edema Integumentary Skin Exam: Warm, Dry Neurologic Neuro Exam: Alert, Awake, Oriented, Speech Clear Psychiatric Psych Exam: Appropriate Responses VTE Prophylaxis VTE Prophylaxis Meds: Lovenox Assessment/Plan Assessment/Plan ASSESSMENT . Scrotal abscess,Status post debridement 03/16/16 . Perirectal abscess, Status post debridement 03/17/16 . Cellulitis . Proteus and enterococcus faecalis reported on cultures . Depression . History of cerebrovascular accident. . Anxiety disorder. . History of ulcerative colitis. . Hypertension Management Antibiotics changed to Unasyn Consult psychiatry Pain control Dressing change per surgery Urology, infectious disease and colorectal surgery following Follow white count Follow renal function Follow electrolytes Discussed with nurse Discussed with patient DVT prophylaxis with Lovenox . Naiad Whiteside MD Mar 20, 2016 22:39
[2016-03-21] VITALS (7 sets, daily range): BP systolic 106–140; BP diastolic 60–77; PULSE 58–69; RESP 16–18; TEMP 96.9–98.4; O2SAT 93–98
[2016-03-21] MEDS: HYDROmorphone HCL PF 1 MG/ML VIAL IV PUSH PRN ×4 (00:04→20:40)
[2016-03-21] MEDS: AMPICILLIN-SULBACTAM INJ 3 GM in SODIUM CHLORIDE 0.9% INJ 100 ML IV SCH ×4 (04:08→20:34)
[2016-03-21] MEDS: DEXT 5%-NACL 0.45% 1000 ML INJ 1,000 ML IV SCH ×2 (07:29→20:48)
[2016-03-21] MEDS: oxyCODONE/ACETAMINOPHEN 10 MG/325 MG TAB PO PRN ×3 (07:45→23:36)
[2016-03-21] MEDS: PHENYTOIN SODIUM 100 MG CAP PO SCH ×2 (08:24→20:34)
[2016-03-21] MEDS: FAMOTIDINE 20 MG TAB PO SCH ×2 (08:25→20:35)
[2016-03-21] MEDS: POTASSIUM CHLORIDE 20 MEQ CONTROLLED RELEASE TAB PO SCH ×2 (08:25→20:35)
[2016-03-21] MEDS: LABETALOL HCL 100 MG TAB PO SCH ×2 (08:25→20:34)
[2016-03-21] MEDS: ENOXAPARIN SODIUM 40 MG/0.4 ML SYRINGE SQ SCH (15:08)
--- NOTE | 2016-03-21 15:47 | HHI.IDPN ---
Note Infectious Disease Note Patient feels okay but has pain in the buttock wound. Afebrile. Wound culture has proteus and enterococci. PAST MEDICAL HISTORY 1. Ulcerative colitis. 2. Cerebrovascular accident with left-sided hemiparesis. 3. Urinary retention. 4. Hypertension. 5. Anxiety. 6. Depression. 7. Asthma. 8. Arthritis. 9. History of hip fracture in July 2013. 10.Ileostomy. 11.Craniotomy. 12.Sinus surgery. ALLERGIES No known drug allergies. MEDICATIONS Ampicillin/Sulbactam. OBJECTIVE: Vital Signs Date Time Temp Pulse Resp B/P Pulse Ox O2 Delivery O2 Flow Rate FiO2 03/21/16 12:00 98.1 61 16 109/60 94 03/21/16 11:42 16 03/21/16 08:30 16 03/21/16 08:00 97.7 58 16 122/68 95 03/21/16 04:00 96.9 64 18 117/67 93 03/21/16 00:00 97.6 61 18 140/77 94 03/20/16 20:00 96.8 66 18 121/71 95 03/20/16 16:00 98.0 62 16 130/75 95 03/20/16 03/20/16 03/21/16 15:00 23:00 07:00 Intake Total 960 ml 440 ml 240 ml Output Total 1395 ml 500 ml 750 ml Balance -435 ml -60 ml -510 ml Intake Oral 960 ml 240 ml 240 ml IV Total 200 ml Output Urine Total 1125 ml 500 ml 500 ml Stool Total 270 ml 250 ml PHYSICAL EXAMINATION GENERAL: No acute distress. Awake, alert and oriented. HEENT: No icterus. NECK: Supple. No adenopathy. LUNGS: Clear. HEART: Regular rate and rhythm without audible murmurs, rubs or gallops. ABDOMEN: Bowel sounds present, soft, nontender. The patient has an ileostomy in the lower abdomen which is functioning. : The scrotum swelling is decreased. The buttocks has less erythema. Open wound post surgical debridement at the buttock is being packed. Wound clean. EXTREMITIES: No clubbing, cyanosis or edema. SKIN: No rash. NEUROLOGIC: Left-sided weakness of upper and lower extremities with contracture of the left upper extremity. PSYCHIATRIC: The patient appears calm. IMPRESSION 1. Perirectal abscesses status post debridement. Proteus and enterococci. 2. Leukocytosis secondary to infection. Improved. RECOMMENDATIONS 1. Continue Unasyn x 10 days more. Until 03/31/16. 2. PIC line. 3. Arrangement for SNF IV antibiotic administration. Ibrahima Ambrocio MD Mar 21, 2016 15:47
--- NOTE | 2016-03-21 15:49 | HHI.FF ---
Infusion Therapy Location of Infusion Therapy: [facility] Infusion Therapy Order Patient Information Patient Weight 94.4 kg Diagnosis: (1) Rectal abscess (2) Scrotal abscess Coded Allergies: No Known Allergies (Unverified , 03/15/16) Administer Medication Unasyn 3 gms IV q 6 hours Stop Treatment: Mar 31, 2016 Additional Information Venous access: Other Additional Instructions [x] Peripheral flush and dressing changes per protocol [x] Implanted port and central online publisher: * Implanted port: 10 ml Normal Saline followed by 5 ml Heparin 100 units/ml Heparin flush after each use and monthly to maintain. [] May leave port accessed during therapy. [] May leave peripheral site accessed for duration of therapy. [x] If patient has SOB or respiratory distress, check oxygen saturation. If less than 90% or clinical signs of respiratory distress, administer oxygen at 2 L/min. via nasal cannula and notify physician. [x] Anaphylaxis/Reaction orders: * Stop infusion. * Keep IV line open with saline flush. * Notify physician. * Monitor vital signs every 15 minutes until symptoms resolve. * Check Oxygen saturation; Oxygen at 2 L/min. via nasal cannula if less than 90% or clinical signs of respiratory distress. * Administer diphenhydramine (Benadryl) 25 mg IV STAT, (unless patient has received as pre-med). May repeat once, if necessary. * Solu-Cortef 250 mg IVP over 30-60 seconds, use 100 mg vials for each dissolution. * Epinephrine (1mg/1 ml) 0.3 mg subcutaneously or IVP now with any signs of respiratory distress. * Check with physician for new additional pre-med orders if patient is re- challenged or re-treated. [x] May remove PICC line when treatment complete, after confirming with Physician. [x] If the patient is admitted to the hospital, the ED, or transferred via [facility] , complete transfer form including medication reconciliation order sheet. Laboratory Tests Weekly Labs: Ibrahima Younger MD Mar 21, 2016 15:49
--- NOTE | 2016-03-21 17:19 | RADRPT ---
EXAM DATE/TIME: 03/21/2016 16:57 [facility] COMPARISON: CHEST SINGLE AP, December 05, 2015, 22:42. INDICATIONS : Evaluate for right sided picc line placement. MEDICAL HISTORY : Hypertension. cerebrovascular accident, left sided stroke, maria de jesus paresis. SURGICAL HISTORY : None. ENCOUNTER: Initial ACUITY: 1 day PAIN SCORE: 0/10 LOCATION: chest FINDINGS: A single view of the chest demonstrates placement of a right-sided PICC line. The PICC line extends c ephalad into the right internal chart or vein. There is mild basilar atelectasis. No pneumothorax. CONCLUSION: 1. Placement of right-sided PICC line which extends cephalad into the right internal jugular vein. No pneumothorax. Tam Oleary MD on March 21, 2016 at 17:16 Board Certified Radiologist. This report was verified electronically.
--- NOTE | 2016-03-21 17:25 | HHI.PR ---
Subjective Interval History Alert, verbal, mildly confused, concerned about his pain medications and his ADERRALL Review of Systems Constitutional Constitutional Remarks 10 systems reviewed and otherwise negative Vitals/Results Intake & Output 03/20/16 03/20/16 03/21/16 15:00 23:00 07:00 Intake Total 960 ml 440 ml 240 ml Output Total 1395 ml 500 ml 750 ml Balance -435 ml -60 ml -510 ml Intake Oral 960 ml 240 ml 240 ml IV Total 200 ml Output Urine Total 1125 ml 500 ml 500 ml Stool Total 270 ml 250 ml Vital Signs Vital Signs Date Time Temp Pulse Resp B/P Pulse Ox O2 Delivery O2 Flow Rate FiO2 03/21/16 12:00 98.1 61 16 109/60 94 03/21/16 11:42 16 03/21/16 08:30 16 03/21/16 08:00 97.7 58 16 122/68 95 03/21/16 04:00 96.9 64 18 117/67 93 03/21/16 00:00 97.6 61 18 140/77 94 03/20/16 20:00 96.8 66 18 121/71 95 CBC/BMP: 03/19/16 0440 03/18/16 2219 Physical Exam General General Appearance: Well Developed, Comfortable Eyes Eye Exam: Pupils Reactive Ears & Nose Ears & Nose Exam: Nasal Mucosa [place] Throat Throat Exam: Oral Mucosa [place] & Moist Neck Neck Exam: Neck Supple Pulmonary Resp Exam: Breath Sounds Equal Cardiology CV Exam: Normal Sinus Rhythm Gastrointestinal/Abdomen GI Exam: Soft, Non-Tender, Bowel Sounds Present GI Remarks Colostomy bag in place Genitourinary Remarks Clean dry dressing in place Musculoskeletal MS Remarks Left hemiplegia with edema Integumentary Skin Exam: Warm, Dry Neurologic Neuro Exam: Alert, Awake, Oriented, Speech Clear Psychiatric Psych Exam: Appropriate Responses VTE Prophylaxis VTE Prophylaxis Meds: Lovenox Assessment/Plan Assessment/Plan ASSESSMENT . Scrotal abscess,Status post debridement 03/16/16 . Perirectal abscess, Status post debridement 03/17/16 . Cellulitis . Proteus and enterococcus faecalis reported on cultures . Depression . History of cerebrovascular accident. . Anxiety disorder. . History of ulcerative colitis. . Hypertension Management Antibiotics per ID Pain control Can be discharged per Colorectal surgery Urology, infectious disease and colorectal surgery following Discharged to rehabilitation today on IV antibiotics Discussed with nurse Discussed with patient . Naida Whiteside MD Mar 21, 2016 17:25
[2016-03-21] MEDS ORDERED: ADDE10 PO (17:31)
[2016-03-21] MEDS ORDERED: OXYC1TAB36 PO (17:31)
[2016-03-21] MEDS ORDERED: BACL10TA PO (17:31)
--- NOTE | 2016-03-21 18:49 | RADRPT ---
EXAM DATE/TIME: 03/21/2016 18:20 [facility] COMPARISON: CHEST SINGLE AP, March 21, 2016, 16:57. INDICATIONS : Right PICC line reposition. MEDICAL HISTORY : Hypertension. cerebrovascular accident, left sided stroke, maria de jesus paresis. SURGICAL HISTORY : Loop recorder ENCOUNTER: Subsequent ACUITY: 1 day PAIN SCORE: 0/10 LOCATION: Bilateral chest FINDINGS: A single view of the chest demonstrates right basilar scarring. Left lung clear. Right-sided PICC caio e seen with tip at the cavoatrial junction. The cardiomediastinal contours are unremarkable. Osseou s structures are intact. CONCLUSION: Adequate placement of right-sided PICC line. Orestes Spencer MD on March 21, 2016 at 18:47 Board Certified Radiologist. This report was verified electronically.
--- NOTE | 2016-03-21 19:08 | HHI.DS ---
Discharge Summary Admission Date Mar 15, 2016 at 18:11 Discharge Date: Mar 21, 2016 Admitting Diagnosis right scrotal abscess with cellulitis, leukocytosis Brief History This was a pleasant, 60-year-old white male who has presented to the ER for left lower extremity pain as well as pain in his buttocks. He was complaining of muscle spasms which become fairly severe in his left leg. The patient stated for the past five days he had been having some buttocks pain and some scrotal pain with body aches. The patient had a fairly sedentary lifestyle secondary to a CVA. He had a significant history of ulcerative colitis and currently had a ileostomy due to a number of perirectal abscesses he has had in the past. The patient felt like this may be the same type of pain. He denied any chest pain. No shortness of breath. The patient denied any nausea or vomiting. He denied any headaches. He denied any fever. The patient did have a ileostomy which does have stool in the bag that appeared to be working properly. The patient does have periods of anxiety and has been more anxious in the past week or so. He does have acute on chronic pain and currently rates his pain as 7 out of 10. The patient is positive for left-sided weakness. He cannot overcome resistance in his left lower leg and his left arm is flaccid. CBC/BMP: 03/19/16 0440 03/18/16 2219 Significant Findings Laboratory Tests Test 03/18/16 03/19/16 22:19 04:40 Chloride Level 111 MEQ/L (98-107) Blood Urea Nitrogen 4 MG/DL (7-18) Estimat Glomerular Filtration 70 ML/MIN (>89) Rate Random Glucose 193 MG/DL (74-106) Calcium Level 7.9 MG/DL (8.5-10.1) Vancomycin Level Trough 11.7 MCG/ML (5.0-10.0) Red Blood Count 3.74 MIL/MM3 (4.50-5.90) Hemoglobin 10.6 GM/DL (13.0-17.0) Hematocrit 31.8 % (39.0-51.0) Platelet Count 485 TH/MM3 (150-450) Mean Platelet Volume 6.9 FL (7.0-11.0) Neutrophils (%) (Auto) 78.6 % (16.0-70.0) Lymphocytes (%) (Auto) 8.7 % (9.0-44.0) Monocytes (%) (Auto) 8.1 % (0.0-8.0) Lymphocytes # (Auto) 0.8 TH/MM3 (1.0-4.8) Imaging Last Impressions Chest X-Ray 03/21/16 0000 Signed Impressions: Service Date/Time: Monday, March 21, 2016 18:20 - CONCLUSION: Adequate placement of right-sided PICC line. Orestes Spencer MD Scrotum Ultrasound 03/16/16 0600 Signed Impressions: Service Date/Time: Wednesday, March 16, 2016 09:27 - CONCLUSION: Bilateral small scrotal varices . 5 mm cyst left epididymis. Testicles themselves are normal with normal vascularity Tho Che MD Abdomen/Pelvis CT 03/15/16 1513 Signed Impressions: Service Date/Time: February 16:58 - CONCLUSION: Abnormal fluid collection identified within the midline scrotum concerning for abscess which is extending into the right penile shaft. Yenny Abraham MD Lower Extremity Ultrasound 03/15/16 0000 Signed Impressions: Service Date/Time: February 17:27 - CONCLUSION: Normal examination. Yenny Abraham MD PE at Discharge Physical Exam Physical Exam General General Appearance: Well Developed, Comfortable Eyes Eye Exam: Pupils Reactive Ears & Nose Ears & Nose Exam: Nasal Mucosa [place]ail Throat Throat Exam: Oral Mucosa [place] & Moist Neck Neck Exam: Neck Supple Pulmonary Resp Exam: Breath Sounds Equal Cardiology CV Exam: Normal Sinus Rhythm Gastrointestinal/Abdomen GI Exam: Soft, Non-Tender, Bowel Sounds Present GI Remarks Colostomy bag in place Genitourinary Remarks Clean dry dressing in place Musculoskeletal MS Remarks Left hemiplegia with edema Integumentary Skin Exam: Warm, Dry Neurologic Neuro Exam: Alert, Awake, Oriented, Speech Clear Psychiatric Psych Exam: Appropriate Responses VTE Prophylaxis VTE Prophylaxis Meds: Lovenox Hospital Course This is the assessment and diagnosis used for his plan of care during hospital stay. ASSESSMENT . Scrotal abscess,Status post debridement 03/16/16 . Perirectal abscess, Status post debridement 03/17/16 . Cellulitis . Proteus and enterococcus faecalis reported on cultures . Depression . History of cerebrovascular accident. . Anxiety disorder. . History of ulcerative colitis. . Hypertension Antibiotics changed to Unasyn, during hospital stay Consult psychiatry or expert opinion for medical management Pain control with medications Dressing change per surgery Urology, infectious disease and colorectal surgery following Follow white count, monitored with labs. No acute issues Follow renal function, monitored with labs Discussed with nurse and patient, case management and physician during hospital stay 2-1 patient was stable for discharge. Patient's in order stand DVT prophylaxis with Lovenox . Pt Condition on Discharge: Stable Discharge Disposition: Discharge to SNF Discharge Instructions DIET: Follow Instructions for: As Tolerated, No Restrictions Activities you can perform: Regular-No Restrictions Follow up Referrals: Appointment for Follow Up - 2 Weeks with Willie Wellington MD New Medications: Amphetamine-Dextroamphetamine (Adderall) 10 Mg Tab 10 MG PO BID Avoid late evening doses. Space doses at least 4 to 6 hours if more than once/day dosing. Hyperactivity Control #60 Ref 0 TAB Baclofen (Baclofen) 10 Mg Tab 10 MG PO TID PRN MUSCLE SPASM #90 TAB Oxycodone-Acetaminophen (Oxycodone-Acetaminophen) 10-325 mg Tab 1 TAB PO Q6H PRN PAIN SCALE 1 TO 5 #30 TAB Continued Medications: Aspirin (Aspirin) 325 Mg Tab 325 MG PO DAILY #30 Ref 0 TAB Baclofen (Baclofen) 10 Mg Tab 10 MG PO Q8HR PRN MUSCLE SPASM Ref 0 TAB Fluoxetine (Prozac) 10 Mg Cap 10 MG PO BID #30 Ref 0 CAP Labetalol (Labetalol) 100 Mg Tab 100 MG PO BID Blood Pressure Management Ref 0 TAB Levetiracetam (Keppra) 500 Mg Tab 500 MG PO TID Control Seizures #60 Ref 0 TAB Phenytoin Extended (Dilantin) 30 Mg Cap 30 MG PO TID Control Seizures #90 Ref 0 CAP Tamsulosin (Flomax) 0.4 Mg Cap 0.4 MG PO HS Manage Prostate Problems #30 Ref 0 CAP Tamsulosin (Flomax) 0.4 Mg Cap 0.4 MG PO HS Manage Prostate Problems #30 Ref 0 CAP Discontinued Medications: Amphetamine-Dextroamphetamine (Adderall) 15 Mg Tab 15 MG PO BID Avoid late evening doses. Space doses at least 4 to 6 hours if more than once/day dosing. Hyperactivity Control #60 Ref 0 TAB Baclofen (Baclofen) 10 Mg Tab 10 MG PO TID PRN MUSCLE SPASM Ref 0 TAB Adriana Chapman Mar 21, 2016 19:08
[2016-03-21] MEDS: TAMSULOSIN HCL 0.4 MG CAP PO SCH (20:34)
--- NOTE | 2016-03-21 22:43 | HHI.PR ---
Subjective Remarks C/R Surg POD # 4 afebrile, VSS UO good jason PO Objective - Vital Signs Date Time Temp Pulse Resp B/P Pulse Ox O2 Delivery O2 Flow Rate FiO2 03/21/16 20:20 97.1 68 18 106/61 98 03/19/16 12:45 21 03/17/16 17:15 Nasal Cannula 2 Result Diagram: 03/19/16 0440 03/18/16 2219 Objective Remarks PE alert Abd -s oft, wounds clean still open, A/P Assessment and Plan Imp: OOB wet/dry dressings, irrigate DC plans - dc Willie Hanson MD Mar 21, 2016 22:42
[2016-03-21] MEDS: BACLOFEN 10 MG TAB PO PRN (23:35)
[2016-03-22] MEDS: AMPICILLIN-SULBACTAM INJ 3 GM in SODIUM CHLORIDE 0.9% INJ 100 ML IV SCH ×2 (01:47→08:54)
[2016-03-22] MEDS: HYDROmorphone HCL PF 1 MG/ML VIAL IV PUSH PRN (01:51)
[2016-03-22 08:00] VITALS: BP 113/62; PULSE 58; RESP 17; TEMP 98.2; O2SAT 95
[2016-03-22] MEDS: POTASSIUM CHLORIDE 20 MEQ CONTROLLED RELEASE TAB PO SCH (08:55)
[2016-03-22] MEDS: FAMOTIDINE 20 MG TAB PO SCH (08:55)
[2016-03-22] MEDS: LABETALOL HCL 100 MG TAB PO SCH (08:55)
[2016-03-22] MEDS: PHENYTOIN SODIUM 100 MG CAP PO SCH (08:55)
[2016-03-22] MEDS: DEXT 5%-NACL 0.45% 1000 ML INJ 1,000 ML IV SCH (08:59)
[2016-03-22] MEDS: oxyCODONE/ACETAMINOPHEN 10 MG/325 MG TAB PO PRN (09:05)
[2016-03-22 10:17] VITALS: RESP 18
--- NOTE | 2016-03-23 10:53 | MP ---
cc: MACARIO VO M.D. DATE OF SURGERY: 03/17/2016 PREOPERATIVE DIAGNOSIS: 1. History of total colectomy, ileostomy. 2. 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 SURGEON Dr. Vo PROJECT DEVELOPMENT ENGINEER: None. PROCEDURE After adequate general anesthesia, the patient was placed in the left lateral decubitus position. The buttocks taped apart, prepped with Betadine solution and draped in usual sterile fashion. Examination revealed the anal canal to be very short from his previous colectomy. At the apex of the pouch was a cavity full with some purulent fluid and this was digitally broken up and drained. There also appeared to be drainage and discharge along the perineum. The cavity was entered with a Nia clamp and this did connect to a opening in the anterior part of the anal canal consistent with an anorectal fistula. The fistulous tract was opened using electrocautery and further debridement and wide excision was obtained. The cavity did appear to extend along the perineal body down toward the base of the scrotum and prostate. These planes were all digitally explored and opened up. The skin was widened for better drainage and easier packing. After complete drainage. No further pus or sinus tracts were identified. The wounds were all irrigated copiously and hemostasis achieved with electrocautery. The wounds were packed loosely with a long Kerlix gauze and a large fluff dressing externally. The patient tolerated the procedure quite well and was brought to recovery room in stable condition. Sponge and needle counts were correct at the end of the procedure. MD MARQUITA White/ping /10:58 PM /10:47 AM
== END 2016-03-22 11:37 | DRG 348 ==
LOC: NEPE 14:16 → NEDA 18:11 → HOCA 21:08 → N07B 03-16 11:32
PROVIDERS: ADMIT Specialist; ATTEND Specialist
PROC: 0D9P7ZX Drainage of Rectum, Via Natural or Artificial Opening, Diagnostic (ICD-10-PCS; 2016-03-16)
PROC: 0DBP7ZZ Excision of Rectum, Via Natural or Artificial Opening (ICD-10-PCS; principal; 2016-03-17 15:16)
DX: K61.2 Anorectal abscess (principal); E87.1 Hypo-osmolality and hyponatremia; I10 Essential (primary) hypertension; I69.354 Hemiplegia and hemiparesis following cerebral infarction affecting left non-dominant side; B85.2 Pediculosis, unspecified; F12.90 Cannabis use, unspecified, uncomplicated; L03.315 Cellulitis of perineum; F32.9 Major depressive disorder, single episode, unspecified; J45.909 Unspecified asthma, uncomplicated; F41.9 Anxiety disorder, unspecified; M62.838 Other muscle spasm; G89.29 Other chronic pain; M19.90 Unspecified osteoarthritis, unspecified site; F41.8 Other specified anxiety disorders; F40.240 Claustrophobia; Z93.2 Ileostomy status; N40.1 Benign prostatic hyperplasia with lower urinary tract symptoms; R33.9 Retention of urine, unspecified; B96.4 Proteus (mirabilis) (morganii) as the cause of diseases classified elsewhere; B95.2 Enterococcus as the cause of diseases classified elsewhere
CPT/HCPCS: 36569; 71010; 74177; 76870; 76937; 80048; 80185; 80202; 81001; 83605; 83735; 84100; 85025; 85027; 85610; 85730; 86403; 87015; 87040; 87070; 87077; 87102; 87116; 87186; 87205; 87206; 93005; 93971; 93975; 96374; 96375; J0131; J0295; J1170; J1642; J1650; J1885; J2060; J2250; J2270; J2370; J2405; J2543; J3010; J3370; J7050; J7120; Q9967